=== PATIENT | female | born 1990 | race Caucasian/White ===

== ENCOUNTER 2020-01-24 11:53 | Outpatient (CLI) | payer OTHER ==
[2020-01-24 13:39] LABS: FOLLICLE STIMULATING HORMONE 5.56 mIU/mL
[2020-01-25 06:41] LABS: PROGESTERONE <0.5 ng/mL
[2020-01-25 06:57] LABS: ESTRADIOL 142 pg/mL
== END 2020-01-24 11:54 | disposition home or self-care (01) ==
LOC: LAB 11:53
PROVIDERS: ATTEND Advanced Practice Midwife
DX: Z71.89 Other specified counseling (principal)
CPT/HCPCS: 36415; 81599; 82397; 82670; 83001; 84144; 84270; 84402; 84403; 84443

== ENCOUNTER 2020-02-12 12:58 | Outpatient (CLI) | payer OTHER ==
[2020-02-12 13:16] LABS: HGB - HEMOGLOBIN 13.5 g/dL (12.0-16.0); MEAN CORPUSCULAR HEMOGLOBIN 30.5 pg (27.0-31.0); MEAN CORPUSCULAR VOLUME 89.8 fL (81.0-99.0); MEAN PLATELET VOLUME 9.8 fL (7.9-10.8); RED BLOOD COUNT 4.42 10^6/uL (4.20-5.40); RED CELL DISTRIBUTION WIDTH 13.2 % (12.0-15.0); WHITE BLOOD COUNT 7.2 x10^3/uL (4.8-10.8)
[2020-02-12 14:22] LABS: HEMOGLOBIN A1c% 5.6 % (4.27-6.07)
== END 2020-02-12 12:59 | disposition home or self-care (01) ==
LOC: LAB 12:58
PROVIDERS: ATTEND Advanced Practice Midwife
DX: Z71.89 Other specified counseling (principal)
CPT/HCPCS: 36415; 81599; 82670; 82728; 83036; 83520; 84403; 85027

== ENCOUNTER 2020-06-02 07:00 | Outpatient (CLI) | payer OTHER ==
[2020-06-03 10:28] LABS: BILIRUBIN,URINE NEGATIVE (NEGATIVE); GLUCOSE, URINE (UA) NEGATIVE (NEGATIVE); KETONES,URINE (UA) NEGATIVE (NEGATIVE); LEUKOCYTE ESTERASE, URINE NEGATIVE (NEGATIVE); NITRITE,URINE NEGATIVE (NEGATIVE); OCCULT BLOOD,URINE NEGATIVE (NEGATIVE); PH,URINE 5.5 PH (5.0-7.5); PROTEIN,URINE NEGATIVE (NEGATIVE); UROBILINOGEN,URINE 0.2 (NORMAL) E.U./dL (NORMAL)
[2020-06-03 10:53] LABS: CLARITY,URINE CLOUDY (CLEAR)
[2020-06-03 10:54] LABS: RBC,URINE None Seen /HPF (0-5)
[2020-06-03 10:55] LABS: AMORPHOUS SEDIMENT,UR Moderate /LPF; BACTERIA,URINE Rare /HPF (None Seen); SQUAMOUS EPITHELIAL CELL,UR FEW Squamous (<= Few)
[2020-06-03 10:58] LABS: AMPHETAMINE SCREEN,URINE NEGATIVE (NEGATIVE); BENZODIAZEPINES SCREEN, URINE NEGATIVE (NEGATIVE); COCAINE SCREEN URINE NEGATIVE (NEGATIVE); METHADONE SCREEN, URINE NEGATIVE (NEGATIVE); METHAMPHETAMINES SCREEN, URINE NEGATIVE (NEGATIVE); MUDS CUTOFF CONCENTRATIONS CUTOFF CONC BELOW:; OPIATE SCREEN, URINE NEGATIVE (NEGATIVE); OXYCODONE SCREEN, URINE NEGATIVE (NEGATIVE); PROPOXYPHENE SCREEN, URINE NEGATIVE (NEGATIVE); TRICYCLIC ANTIDEPRESSANT,URINE NEGATIVE (NEGATIVE)
== END 2020-06-02 23:59 | disposition home or self-care (01) ==
LOC: LAB.R 07:00
PROVIDERS: ATTEND Advanced Practice Midwife
DX: Z34.90 Encounter for supervision of normal pregnancy, unspecified, unspecified trimester (principal)
CPT/HCPCS: 80306; 81001; 87086

== ENCOUNTER 2020-06-13 14:50 | Outpatient (CLI) | payer OTHER ==
--- NOTE | 2020-06-13 16:44 | Ultrasound Report ---
PROCEDURE: OB First Trimester w/TV INDICATIONS: SUPERVISION OF NORMAL OUTSIDE/PRIOR DATING DATA: Last menstrual period (LMP): 04/24/2020. LMP-based estimated date of delivery (MARIE): 01/29/2021. First dating scan (date and location): 06/13/2020. Estimated date of delivery (MARIE) from first dating scan: 02/02/2021. TECHNIQUE: Real-time scanning was performed of the fetus and maternal pelvic organs, with image documentation. Endovaginal scanning was also performed to better visualize the fetus and maternal ovaries. COMPARISON: None. FINDINGS: Embryo: Single living intrauterine fetus is present with a heart rate measures 130 bpm. [place]- rump length measures 0.7 cm, 6 weeks 4 days. Perigestational hemorrhage measuring 1.1 x 1.2 x 1.1 cm Measurement variability in dating: +/- 4 weeks by LMP, +/- 7 days by mean sac diameter (use before 6 weeks gestation if crown-rump length not able to be measured), +/- 5 days by crown-rump length (6-12 weeks gestation). Maternal organs: Ovaries unremarkable except for incidentally noted right corpus luteum. Limited im ages through the kidneys demonstrate no hydronephrosis. IMPRESSION: Single living intrauterine fetus with a gestational age of 6 weeks and 4 days by today's ultrasound m easurements corresponding to an MARIE of 02/02/2021, which is concordant with reported LMP as above Small perigestational hemorrhage. Reviewed by: Jericho Adkins MD on 06/13/2020 4:43 PM PST Approved by: Jericho Adkins MD on 06/13/2020 4:43 PM PST Station ID: [id number]
== END 2020-06-13 14:51 | disposition home or self-care (01) ==
LOC: DI 14:50
PROVIDERS: ATTEND Advanced Practice Midwife
DX: Z34.91 Encounter for supervision of normal pregnancy, unspecified, first trimester (principal)

== ENCOUNTER 2020-06-30 21:46 | Emergency (ER) | payer OTHER ==
--- NOTE | 2020-07-01 00:33 | ED Physician Documentation ---
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 Patient states she is approximately 9 to 10 weeks and has had an unremarkable so far. She has had an ultrasound already which is shown and I PE. Patient states she was at work at her job in a [employer], when she was asked to help an elderly man chair. She states that she felt as though she strained herself somewhat trying to do this, and has had right lower quadrant abdominal pain in the 2 days since. Patient states that today, when she wiped after urinating, she noticed a red streak on the toilet paper. An hour or 2 later, she had to the bathroom again and noticed that there was still bright red blood. She states she put on a pad and has not soaked the pad yet, after several hours. She denies any cramping. No passage of tissue. No nausea or vomiting. No other complaints at this time. No dysuria or fever. Review of Systems Ten Systems: 10 systems reviewed and negative Constitutional: reports: Reviewed and negative Eyes: reports: Reviewed and negative Ears: reports: Reviewed and negative Nose: reports: Reviewed and negative Throat: reports: Reviewed and negative Cardiac: reports: Reviewed and negative Respiratory: reports: Reviewed and negative GI: reports: Reviewed and negative : reports: Vaginal bleeding, Now EGA (LMP 04/24/20) Skin: reports: Reviewed and negative Musculoskeletal: reports: Reviewed and negative Neurologic: reports: Reviewed and negative Psychiatric: reports: Reviewed and negative Endocrine: reports: Reviewed and negative Immunocompromised: reports: Reviewed and negative PD PAST MEDICAL HISTORY - Past Medical History Past Medical History: Yes Cardiovascular: Murmur - Past Surgical History Past Surgical History: Yes General: Appendectomy - Present Medications Home Medications: Ambulatory Orders Medication Instructions Recorded Confirmed No115/Iron/Folic Acid 1 each PO DAILY 06/30/20 06/30/20 [ 19 Chewable Tablet] - Allergies Allergies/Adverse Reactions: Allergies Allergy/AdvReac Type Severity Reaction Status Date / Time No Known Drug Allergies Allergy Verified 06/30/20 22:01 - Social History Does the pt smoke?: No Smoking Status: Never smoker Does the pt drink ETOH?: No Does the pt have substance abuse?: No PD ED PE NORMAL - Vitals Vital signs reviewed: Yes - General General: Alert and oriented X 3, No acute distress - HEENT HEENT: Atraumatic, PERRL, EOMI, Moist mucous membranes - Neck Neck: Supple, no meningeal sign - Cardiac Cardiac: RRR, No murmur, Strong equal pulses - Respiratory Respiratory: No respiratory distress, Clear bilaterally - Abdomen Abdomen: Soft, Non distended, Other (Mild tenderness right pelvic area, no rebound or guarding. No tenderness over McBurney's point.) - Female Female : Other (Normal female genitalia. Mild amount of reddish-brown, diluted bloody discharge in vaginal canal. No trauma. No tissue.) - Back Back: No CVA TTP - Derm Derm: Normal color, Warm and dry, No rash - Extremities Extremities: No deformity, No edema, No calf tenderness / cord - Neuro Neuro: Alert and oriented X 3, equine dentist 2-12 intact, Normal speech, Other (Otherwise grossly intact.) - Psych Psych: Normal mood, Normal affect Results - Vitals Vitals: Vital Signs - 24 hr 06/30/20 07/01/20 21:55 01:17 Temperature 37.1 C 36.8 C Heart Rate 91 83 Respiratory 16 20 Rate Blood Pressure 154/120 H 161/107 H O2 Saturation 100 100 Oxygen O2 Source Room air - Labs Labs: Laboratory Tests 06/30/20 07/01/20 22:30 00:25 HCG, Quant 40053.00 Urine Color YELLOW Urine Clarity CLEAR Urine pH 6.0 Ur Specific [place] >=1.030 H Urine Protein TRACE Urine Glucose (UA) NEGATIVE Urine Ketones NEGATIVE Urine Occult Blood LARGE H Urine Nitrite NEGATIVE Urine Bilirubin NEGATIVE Urine Urobilinogen 0.2 (NORMAL) Ur Leukocyte Esterase NEGATIVE Urine RBC 11-25 H Urine WBC 0-3 Ur Squamous Epith Cells MOD Squamous H Urine Bacteria Rare Ur Microscopic Review INDICATED Urine Culture Comments NOT INDICATED - Rads (name of study) US OB Radiology: Final report received, See rad report (single live IUP, 9 wks; subchorionic hemorrhage) PD MEDICAL DECISION MAKING - ED course Complexity details: reviewed results, re-evaluated patient, considered differential, d/w patient ED course: The patient was worked up with an ultrasound of the pelvis, with OB protocol, and this did show a single live 9-week IUP, as well as a couple of small subchorionic hemorrhages.. Also, a small ovarian cyst was noted. The patient was hemodynamically stable and bleeding was mild. I discussed with the patient that at this point, her appears to be doing very well, but the bleeding can still sometimes signal that a miscarriage will happen. I have advised patient to follow closely with her OB specialist, and patient states she has an appointment in 4 days. We have discussed home management of the symptoms, as well as the usual indications for return. Departure - Departure Disposition: 01 Home, Self Care Clinical Impression: Threatened affecting intrauterine Abdominal wall strain Qualifiers: Encounter type: initial encounter Qualified Code(s): S39.011A - Strain of muscle, fascia and tendon of abdomen, initial encounter Ovarian cyst Qualifiers: Laterality: right Qualified Code(s): N83.201 - Unspecified ovarian cyst, right side Condition: Stable Instructions: ED Miscarriage Poss Comments: Your hormones are within the range of normal for your stage of . Additionally, your baby's heart rate and activity level are reassuring, and the sac is at an appropriate size for your stage of . It does appear that you have a small area of separation of the sac, which is caused a subchorionic hemorrhage, or small free blood collection within the ut erus. Generally, this does not cause any trouble with the ; however, it can sometimes seep down to the cervix and bloody discharge can be noted from the vagina. This seems to be most likely what is happening in your case. However, since bleeding can be a sign that the is under stress, it is important that you follow-up with your OB for regular care. If you begin to have severe lower abdominal pain and cramping with increasingly heavy bleeding, then you should be reevaluated immediately. Discharge Date/Time: 07/01/20 01:18
[2020-07-01 00:52] LABS: BILIRUBIN,URINE NEGATIVE (NEGATIVE); GLUCOSE, URINE (UA) NEGATIVE (NEGATIVE); KETONES,URINE (UA) NEGATIVE (NEGATIVE); LEUKOCYTE ESTERASE, URINE NEGATIVE (NEGATIVE); NITRITE,URINE NEGATIVE (NEGATIVE); OCCULT BLOOD,URINE LARGE (NEGATIVE); PROTEIN,URINE TRACE mg/dL (NEGATIVE); UROBILINOGEN,URINE 0.2 (NORMAL) E.U./dL (NORMAL)
[2020-07-01 01:01] LABS: CLARITY,URINE CLEAR (CLEAR)
[2020-07-01 01:02] LABS: BACTERIA,URINE Rare /HPF (None Seen); SQUAMOUS EPITHELIAL CELL,UR MOD Squamous (<= Few)
[2020-07-01 01:18] VITALS: BP 161/107
--- NOTE | 2020-07-01 14:24 | Ultrasound Report ---
PROCEDURE: OB First Trimester INDICATIONS: vag bleed 1st trimester OUTSIDE/PRIOR DATING DATA: Last menstrual period (LMP): 06/24/2019. LMP-based estimated date of delivery (MARIE): 01/29/2021. First dating scan (date and location): 06/13/2020. Estimated date of delivery (MARIE) from first dating scan: 02/02/2021. TECHNIQUE: Real-time scanning was performed of the fetus and maternal pelvic organs, with image documentation. COMPARISON: OB ultrasound 06/13/2020 FINDINGS: Embryo: Single live intrauterine is identified with crown-rump length measuring 2.3 sq cm spine to 9 weeks 0 days. This is the same as the estimated gestational age from initial ultrasound on 06/13/2020. heart rate is identified at 164 bpm. Cervix is closed. There is a superior subchori onic hemorrhage measuring 13 x 9 x 15 mm as well as a focus of inferior subchorionic hemorrhage measu ring 9 x 5 mm. Measurement variability in dating: +/- 4 weeks by LMP, +/- 7 days by mean sac diameter (use before 6 weeks gestation if crown-rump length not able to be measured), +/- 5 days by crown-rump length (6-12 weeks gestation). Maternal organs: Ovaries demonstrate a right corpus luteal cyst.. IMPRESSION: 1. Single live intrauterine with ultrasound gestational age of 9 weeks 0 days corresponding to ultrasound MARIE of . 2. Two foci of subchorionic hemorrhage as above. The above findings are concordant with preliminary report. Reviewed by: Coleen Welsh MD on 07/01/2020 2:22 PM PST Approved by: Coleen Welsh MD on 07/01/2020 2:22 PM PST Station ID: [id number]
--- NOTE | 2020-07-01 15:32 | Ultrasound Report ---
PROCEDURE: OB Transvaginal INDICATIONS: vag bleed 1st trimester OUTSIDE/PRIOR DATING DATA: Last menstrual period (LMP): 06/24/2019. LMP-based estimated date of delivery (MARIE): 01/29/2021. First dating scan (date and location): 06/13/2020. Estimated date of delivery (MARIE) from first dating scan: 02/02/2021. TECHNIQUE: Real-time scanning was performed of the fetus and maternal pelvic organs, with image documentation. COMPARISON: OB ultrasound 06/13/2020 FINDINGS: Embryo: Single live intrauterine is identified with crown-rump length measuring 2.3 sq cm s pine to 9 weeks 0 days. This is the same as the estimated gestational age from initial ultrasound on 06/13/2020. heart rate is identified at 164 bpm. Cervix is closed. There is a superior subchorio felix hemorrhage measuring 13 x 9 x 15 mm as well as a focus of inferior subchorionic hemorrhage measuring 9 x 5 mm. Maternal organs: Ovaries demonstrate a right corpus luteal cyst. IMPRESSION: 1. Single live intrauterine with ultrasound gestational age of 9 weeks 0 days corresponding to ultrasound MARIE of . 2. Two foci of subchorionic hemorrhage as above. The above findings are concordant with preliminary report. Reviewed by: Coleen Welsh MD on 07/01/2020 3:31 PM PST Approved by: Coleen Welsh MD on 07/01/2020 3:31 PM PST Station ID: [id number]
== END 2020-07-01 01:18 | disposition home or self-care (01) ==
LOC: ED 21:46
DX: O20.0 Threatened abortion (principal); S39.011A Strain of muscle, fascia and tendon of abdomen, initial encounter; X50.0XXA Overexertion from strenuous movement or load, initial encounter; Y93.F2 Activity, caregiving, lifting; Y92.59 Other trade areas as the place of occurrence of the external cause; Y99.0 Civilian activity done for income or pay; O34.81 Maternal care for other abnormalities of pelvic organs, first trimester; N83.201 Unspecified ovarian cyst, right side; Z3A.09 9 weeks gestation of pregnancy
CPT/HCPCS: 81001; 81003; 84702; 87086; 99284

== ENCOUNTER 2020-07-04 08:00 | Outpatient (CLI) | payer OTHER ==
[2020-07-04 22:08] LABS: TRICHOMONAS VAGINALIS DNA POSITIVE (NEGATIVE)
== END 2020-07-04 23:59 | disposition home or self-care (01) ==
LOC: LAB.R 08:00
PROVIDERS: ATTEND Nurse Practitioner Obstetrics & Gynecology
DX: Z11.3 Encounter for screening for infections with a predominantly sexual mode of transmission (principal)
CPT/HCPCS: 87491; 87591; 87661

== ENCOUNTER 2020-08-01 10:50 | Outpatient (CLI) | payer OTHER ==
[2020-08-01 11:17] LABS: BASOPHILS % (AUTO) 0.2 %; EOSINOPHILS # (AUTO) 0.1 10^3/uL (0.0-0.7); HCT - HEMATOCRIT 37.9 % (37.0-47.0); HGB - HEMOGLOBIN 12.6 g/dL (12.0-16.0); LYMPHOCYTES # (AUTO) 2.1 10^3/uL (1.5-3.5); LYMPHOCYTES % (AUTO) 25.3 %; MEAN CORPUSCULAR HEMOGLOBIN 29.3 pg (27.0-31.0); MEAN CORPUSCULAR HGB CONC 33.2 g/dL (32.0-36.0); MEAN CORPUSCULAR VOLUME 88.1 fL (81.0-99.0); MEAN PLATELET VOLUME 9.8 fL (7.9-10.8); MONOCYTES # (AUTO) 0.7 10^3/uL (0.0-1.0); MONOCYTES % (AUTO) 8.3 %; NEUTROPHILS # (AUTO) 5.4 10^3/uL (1.5-6.6); NEUTROPHILS % (AUTO) 64.8 %; PLT - PLATELET COUNT 182 10^3/uL (130-450); RED CELL DISTRIBUTION WIDTH 13.2 % (12.0-15.0); WHITE BLOOD COUNT 8.3 x10^3/uL (4.8-10.8)
[2020-08-01 11:36] LABS: ESTIMATED AVERAGE GLUCOSE 114 mg/dL (70-100); HEMOGLOBIN A1c% 5.6 % (4.27-6.07)
[2020-08-02 07:18] LABS: HIV AG/AB 4TH GEN NON-REACTIVE (NON-REACTIVE)
[2020-08-02 13:12] LABS: HEPATITIS C ANTIBODY NON-REACTIVE (NON-REACTIVE)
[2020-08-02 14:12] LABS: HEPATITIS B SURFACE ANTIGEN NON-REACTIVE (NON-REACTIVE)
== END 2020-08-01 10:51 | disposition home or self-care (01) ==
LOC: LAB 10:50
PROVIDERS: ATTEND Nurse Practitioner Obstetrics & Gynecology
DX: Z36.89 Encounter for other specified antenatal screening (principal)
CPT/HCPCS: 36415; 83036; 85025; 86592; 86762; 86787; 86803; 86850; 86900; 86901; 87340; 87389

== ENCOUNTER 2020-08-12 15:50 | Emergency (ER) | payer OTHER ==
[2020-08-12 16:15] LABS: BILIRUBIN,URINE NEGATIVE (NEGATIVE); GLUCOSE, URINE (UA) NEGATIVE (NEGATIVE); KETONES,URINE (UA) NEGATIVE (NEGATIVE); LEUKOCYTE ESTERASE, URINE NEGATIVE (NEGATIVE); NITRITE,URINE NEGATIVE (NEGATIVE); OCCULT BLOOD,URINE NEGATIVE (NEGATIVE); PROTEIN,URINE NEGATIVE (NEGATIVE); UROBILINOGEN,URINE 0.2 (NORMAL) E.U./dL (NORMAL)
[2020-08-12 16:18] LABS: CLARITY,URINE CLEAR (CLEAR)
--- NOTE | 2020-08-12 16:23 | ED Physician Documentation ---
History of Present Illness - Stated complaint Stated Complaint: SENT BY [facility] - Chief complaint Chief Complaint: Neuro - Additonal information Additional information: 30-year-old female presents emergency department for evaluation of elevated blood pressures as well as headache. She reports being 15 weeks 5 days . LMP 04/24/2020. She reports that 4 days ago she developed a headache. It was not sudden onset. No vision loss diplopia recent falls or trauma. No fevers. Denies nausea. She was talking to a friend who told her that maybe she had a headache because she had elevated blood pressures. She bought a blood pressure cuff at the pharmacy and found that she had blood pressure of 160/100. She did call her OB office and spoke with the nurse there who advised ER evaluation. Patient stated that her headache lasted for 3 days before going away yesterday she does not have a headache at this time. Denies chest pain or shortness of breath. Denies any previous history of hypertension or taking hypertensive meds. Pt is a non smoker, non vaper. Denies CP, SOB. no unilateral leg swelling. pt denies vaginal bleeding or discharge. She has not yet begun to feel movement. She was seen in this ED early June with vaginal bleeding in first trimester found to have a subchorionic hemorrhage. Her blood pressures were noted to be elevated with that visit but patient states it is because she was stressed. Review of Systems Constitutional: denies: Fever, Chills, Myalgias Eyes: denies: Decreased vision Ears: reports: Reviewed and negative Nose: reports: Reviewed and negative Throat: reports: Reviewed and negative Cardiac: reports: Reviewed and negative GI: denies: Abdominal Pain, Nausea, Vomiting, Constipation, Diarrhea : denies: Dysuria, Frequency, Hesitancy, Vaginal bleeding Skin: denies: Rash, Lesions Musculoskeletal: denies: Neck pain, Back pain Neurologic: reports: Headache. denies: Numbness, Difficulty speaking, Near syncope, Syncope, Seizure, Confused, Head injury, LOC PD PAST MEDICAL HISTORY - Past Medical History Cardiovascular: Murmur - Past Surgical History Past Surgical History: Yes General: Appendectomy - Present Medications Home Medications: Ambulatory Orders Medication Instructions Recorded Confirmed No115/Iron/Folic Acid 1 each PO DAILY 06/30/20 08/12/20 [ 19 Chewable Tablet] Labetalol [Trandate] 50 mg PO DAILY #7 tablet 08/12/20 - Allergies Allergies/Adverse Reactions: Allergies Allergy/AdvReac Type Severity Reaction Status Date / Time No Known Drug Allergies Allergy Verified 08/12/20 15:57 - Social History Does the pt smoke?: No Smoking Status: Never smoker Does the pt drink ETOH?: No Does the pt have substance abuse?: No PD ED PE EXPANDED - General General: Alert, No acute distress, Other (obese) - Neck Neck: Supple w/out meningeal sx. No: Adenopathy - Cardiac Cardiac: Regular Rate, Radial strong equal, Cap refill < 2 sec. No: Murmur Present - Respiratory Respiratory: Clear to ausultation marylin. No: Distress, Labored - Abdomen Abdomen: Normal Bowel sounds - Neuro Neuro: Alert and Oriented X 3, CNII-XII intact, Normal gait, Normal finger nose, Normal speech. No: Confused, Disoriented - GCS Eye Opening: Spontaneous Motor: Obeys Commands Verbal: Oriented Total: 15 Results - Vitals Vitals: Vital Signs - 24 hr 08/12/20 08/12/20 08/12/20 15:55 16:40 16:57 Temperature 36.2 C L Heart Rate 90 88 80 Respiratory 18 18 Rate Blood Pressure 157/104 H 145/96 H 140/81 H O2 Saturation 100 99 08/12/20 17:00 Temperature Heart Rate 86 Respiratory 16 Rate Blood Pressure 134/88 H O2 Saturation 99 Oxygen O2 Source Room air - EKG (time done) 1636 Rate: Rate (enter#) (96) Rhythm: NSR [place]: Normal Intervals: Normal GA QRS: Normal Ischemia: Normal ST segments Compare to prior EKG: Changed from prior EKG, Old EKG unavailable Computer interpretation: Agree with computer - Labs Labs: Laboratory Tests 08/12/20 08/12/20 16:05 16:24 Sodium 134 L Potassium 3.6 Chloride 100 L Carbon Dioxide 23 Anion Gap 11.0 BUN 10 Creatinine 0.5 Estimated GFR (MDRD) 144 Glucose 89 Calcium 9.4 Total Bilirubin 0.6 AST 17 ALT 18 Alkaline Phosphatase 43 Total Protein 7.3 Albumin 3.6 Globulin 3.7 Albumin/Globulin Ratio 1.0 Lipase 30 Urine Color YELLOW Urine Clarity CLEAR Urine pH 6.0 Ur Specific [place] 1.025 Urine Protein NEGATIVE Urine Glucose (UA) NEGATIVE Urine Ketones NEGATIVE Urine Occult Blood NEGATIVE Urine Nitrite NEGATIVE Urine Bilirubin NEGATIVE Urine Urobilinogen 0.2 (NORMAL) Ur Leukocyte Esterase NEGATIVE Ur Microscopic Review NOT INDICATED Urine Culture Comments NOT INDICATED PD MEDICAL DECISION MAKING - ED course Complexity details: reviewed results, considered differential, d/w patient ED course: 30-year-old female whose 15 weeks 5 days presents emergency department for evaluation of a headache that is no longer present as well as concerns of elevated blood pressures. She did buy home blood pressure monitor and noted that she had systolic pressures of 160/100. On presentation here her blood pressures were similar though after rest we did have a blood pressure reading of 145/96. Limited bedside ultrasound with Dr. Fraser showed single live intrauterine with good movement measured heart rate of 148 bpm. Screening electrolytes show no LFT or renal function concerns. Patient was given 50 mg of labetalol here in the emergency department and will be discharged with a prescription for home use. I have advised patient to take her blood pressure twice daily. She is scheduled to see the OB clinic in 72 hours time at which point her blood pressure can be reevaluated. Though pt reported headache for 3- 4 days, none present now and no red flags. Emergent return precautions discussed Departure - Departure Disposition: Home, Self Care Clinical Impression: Elevated blood pressure affecting in second trimester, antepartum Record reviewed to determine appropriate education?: Yes Prescriptions: Labetalol [Trandate] 50 mg PO DAILY #7 tablet Comments: You were seen today for elevated blood pressure in the second trimester of . Your screening labs are unremarkable as well as your EKG. I would like you to begin taking your blood pressure in the morning upon wakening and 1 hour after you take your labetalol. Please record these blood pressures and ta ke them with you to the OB appointment scheduled this Tuesday. If at any point you have fainting episodes feel faint or dizzy, have suddenly severe headaches or develop chest pain please return to the emergency department.
[2020-08-12 16:42] LABS: ALBUMIN 3.6 g/dL (3.2-5.5); BILIRUBIN,TOTAL 0.6 mg/dL (0.2-1.0); CALCIUM 9.4 mg/dL (8.5-10.3); CREATININE 0.5 mg/dL (0.4-1.0); POTASSIUM 3.6 mmol/L (3.5-5.0); TOTAL PROTEIN 7.3 g/dL (6.7-8.2)
[2020-08-12] MEDS ORDERED: LABETALOL 100 MG TABLET PO STA ×2 (16:49→17:07)
[2020-08-12 17:36] VITALS: BP 127/87
[2020-08-12 21:42] LABS: BASOPHILS % (AUTO) 0.3 %; EOSINOPHILS # (AUTO) 0.1 10^3/uL (0.0-0.7); EOSINOPHILS % (AUTO) 1.4 %; HCT - HEMATOCRIT 36.8 % (37.0-47.0); HGB - HEMOGLOBIN 12.1 g/dL (12.0-16.0); LYMPHOCYTES # (AUTO) 2.7 10^3/uL (1.5-3.5); LYMPHOCYTES % (AUTO) 27.7 %; MEAN CORPUSCULAR HEMOGLOBIN 29.8 pg (27.0-31.0); MEAN CORPUSCULAR HGB CONC 32.9 g/dL (32.0-36.0); MEAN CORPUSCULAR VOLUME 90.6 fL (81.0-99.0); MEAN PLATELET VOLUME 10.4 fL (7.9-10.8); MONOCYTES # (AUTO) 0.8 10^3/uL (0.0-1.0); MONOCYTES % (AUTO) 8.2 %; NEUTROPHILS # (AUTO) 5.9 10^3/uL (1.5-6.6); PLT - PLATELET COUNT 182 10^3/uL (130-450); RED BLOOD COUNT 4.06 10^6/uL (4.20-5.40); RED CELL DISTRIBUTION WIDTH 13.2 % (12.0-15.0); WHITE BLOOD COUNT 9.6 x10^3/uL (4.8-10.8)
[2020-08-13] MEDS ORDERED: LABETALOL 100 MG TABLET PO SCH (09:00)
== END 2020-08-12 17:43 | disposition home or self-care (01) ==
LOC: ED 15:50
DX: O16.2 Unspecified maternal hypertension, second trimester (principal); Z3A.15 15 weeks gestation of pregnancy
CPT/HCPCS: 36415; 80053; 81003; 83690; 85025; 93005; 99283; 99284; A9270; 81001; 87086

== ENCOUNTER 2020-08-28 08:00 | Outpatient (CLI) | payer OTHER ==
[2020-08-28 18:07] LABS: CREATININE,URINE 108.6 mg/dL
== END 2020-08-28 23:59 | disposition home or self-care (01) ==
LOC: LAB.WCP 08:00
PROVIDERS: ATTEND Obstetrics & Gynecology
DX: O16.9 Unspecified maternal hypertension, unspecified trimester (principal)
CPT/HCPCS: 82570; 84156

== ENCOUNTER 2020-09-06 12:33 | Outpatient (CLI) | payer OTHER | END 2020-09-06 12:34 | disposition home or self-care (01) | LOC: LAB.N 12:33 | PROVIDERS: ATTEND Obstetrics & Gynecology | DX: Z53.9 Procedure and treatment not carried out, unspecified reason (principal); O16.9 Unspecified maternal hypertension, unspecified trimester ==

== ENCOUNTER 2020-09-09 09:16 | Outpatient (CLI) | payer OTHER ==
[2020-09-12 04:36] LABS: AFP MOM 1.03; AGE RISK DOWN SYNDROME 1 IN 572; CALC'D GESTATIONAL AGE 19.7 weeks; CIGARETTE SMOKER? NOT GIVEN; DONOR AGE: EGG RETRIEVAL NOT GIVEN; DONOR EGG NO; HCG MOM 0.81; HX OF NEURAL TUBE DEFECTS NO; INHIBIN A MOM 1.18; INSULIN DEPEND DIABETIC NO; MATERNAL WEIGHT 262 lbs; MSS DOWN SYNDROME RISK 1 IN 3289; MSS3 TRISOMY 18 RISK <1 IN 5000; NUMBER OF FETUSES 1; PREV PREGNANCY DOWN SYND NO; RISK FOR ONTD 1 IN 3172
== END 2020-09-09 09:17 | disposition home or self-care (01) ==
LOC: LAB 09:16
PROVIDERS: ATTEND Obstetrics & Gynecology
DX: O16.9 Unspecified maternal hypertension, unspecified trimester (principal)
CPT/HCPCS: 36415; 81511

== ENCOUNTER 2020-09-14 08:21 | Outpatient (CLI) | payer OTHER ==
--- NOTE | 2020-09-14 11:36 | Ultrasound Report ---
PROCEDURE: OB Detailed Eval INDICATIONS: SCREENING OUTSIDE/PRIOR DATING DATA: Last menstrual period (LMP): 04/24/2020. LMP-based estimated date of delivery (MARIE): 01/29/2021. First dating scan (date and location): 06/13/2020. [facility] Estimated date of delivery (MARIE) from first dating scan: 02/03/2020 ri. TECHNIQUE: Real-time scanning was performed of the fetus, with image documentation and biometric measurements. COMPARISON: None. FINDINGS: Exam is suboptimal given maternal body habitus. General: A single living intrauterine gestation is present. Presentation: Variable Placenta: Placental position is posterior, without previa. Amniotic fluid index: 10.4 cm, 10% for gestational age. heart rate: 147 beats per minute. Maternal cervical canal: 4.9 cm long; normal length is 2.5 cm or more. biometrics: Biparietal diameter: 4.3 cm corresponding to 19 weeks 1 day and 6.7% Head circumference: 17.36 cm corresponding to 19 weeks 6 days and 19.6% Cephalic index: 72.65 (normal 74-83) Abdominal circumference: 14.65 cm corresponding to 20 weeks 0 days and 28.1% Femur length: 3.25 cm corresponding to 20 weeks 1 day and 31.4% Estimated gestational age from initial scan: not applicable. Composite gestational age from present scan: 19 weeks 5 days Estimated weight and percentile: 325 mg, 23.1% Measurement variability in biometric dating: +/- 10 days from 12-20 weeks gestation, +/- 2 weeks from 20-30 weeks gestation, +/- 3 weeks at 30 weeks gestation or later. Anatomic survey: Neuro: Ventricles are normal at less than 10 mm. Cisterna magna is normal at 3-11 mm. Cerebellum i s normal in size and morphology. Cavum septum lucidum is not appropriately evaluated. Nuchal skin fold: Normal at less than 6 mm between 14 and 20 weeks gestational age. Face: Nose and lips, facial profile are normal. Spine: No evidence for spina bifida. Heart: 4-chambered heart is present. Outflow tracts are not adequately evaluated. Diaphragm: Diaphragm is intact. Stomach: Left-sided stomach is present. Kidneys: No hydronephrosis. Normal is less than 5 mm in 2nd trimester, less than 7 mm in 3rd trimester. Cord: 3 vessel cord has orthotopic insertion. Bladder: Normal in size. Extremities: All 4 extremities are visualized. IMPRESSION: Single intrauterine with heart rate of 147 bpm corresponding to 19 weeks 5 days on to day's ultrasound. Suboptimal images of the cardiac outflow tracts and the cavum septum pellucidum. Recommend additional images to complete survey. No evidence of anatomic abnormality within the appropriately visual ized anatomic structures. Cephalic index measures below the expected mean which may be seen with dolichocephaly. This may also be artifactual given positioning. Recommend attention on follow-up. Estimated weight of 325 g corresponding to the 23rd percentile. No evidence of placenta previa. Reviewed by: Austin Charles DO on 09/14/2020 10:35 AM JOSEPHINE Approved by: Austin Charles DO on 09/14/2020 10:35 AM JOSEPHINE Station ID: [id number]
== END 2020-09-14 08:22 | disposition home or self-care (01) ==
LOC: DI 08:21
PROVIDERS: ATTEND Nurse Practitioner Obstetrics & Gynecology
DX: Z36.89 Encounter for other specified antenatal screening (principal)

== ENCOUNTER 2020-10-02 08:03 | Outpatient (CLI) | payer OTHER ==
--- NOTE | 2020-10-02 15:26 | Ultrasound Report ---
PROCEDURE: OB F/U or Repeat INDICATIONS: SCREENING OUTSIDE/PRIOR DATING DATA: Last menstrual period (LMP): 04/24/2020. LMP-based estimated date of delivery (MARIE): 01/29/2021. First dating scan (date and location): 06/13/2020. Estimated date of delivery (MARIE) from first dating scan: 02/02/2021. Physician states MARIE 01/29/2021. TECHNIQUE: Real-time scanning was performed of the fetus, with image documentation and biometric measurements. Endovaginal scanning: Not needed COMPARISON: All prior OB ultrasound studies for this .. FINDINGS: General: A single living intrauterine gestation is present. Presentation: Breech Placenta: Placental position is posterior, without previa. Amniotic fluid index: 11.4 cm, 13.6 percentile for gestational age. heart rate: 145 beats per minute. Maternal cervical canal: 4.1 cm long; normal length is 2.5 cm or more. biometrics and anatomic survey: Estimated gestational age from initial scan: 23 weeks 0 days. The survey of anatomy showed no abnormality. The right and left renal regions were not well see n due to positioning. The umbilical cord origin and insertion was poorly visualized. extr emities were relatively poorly seen due to maternal body habitus and positioning. Other: Not applicable. IMPRESSION: 23 weeks 0 day gestation estimated age, no anomaly seen but the survey of an atomy is mildly limited as noted above. If clinically desired repeat attempt to complete the an atomic survey could be performed in 1-2 weeks. Reviewed by: Tanmay Hensley MD on 10/02/2020 3:25 PM PDT Approved by: Tanmay Hensley MD on 10/02/2020 3:25 PM PDT Station ID: [id number]
== END 2020-10-02 08:04 | disposition home or self-care (01) ==
LOC: DI 08:03
PROVIDERS: ATTEND Nurse Practitioner Obstetrics & Gynecology
DX: Z34.92 Encounter for supervision of normal pregnancy, unspecified, second trimester (principal); Z36.89 Encounter for other specified antenatal screening

== ENCOUNTER 2020-10-17 10:34 | Outpatient (CLI) | payer OTHER ==
[2020-10-17 11:58] LABS: MEAN CORPUSCULAR HEMOGLOBIN 29.4 pg (27.0-31.0); MEAN CORPUSCULAR HGB CONC 32.4 g/dL (32.0-36.0); MEAN CORPUSCULAR VOLUME 90.9 fL (81.0-99.0); MEAN PLATELET VOLUME 10.2 fL (7.9-10.8); RED BLOOD COUNT 3.74 10^6/uL (4.20-5.40); RED CELL DISTRIBUTION WIDTH 13.3 % (12.0-15.0); WHITE BLOOD COUNT 10.8 x10^3/uL (4.8-10.8)
== END 2020-10-17 10:35 | disposition home or self-care (01) ==
LOC: LAB 10:34
PROVIDERS: ATTEND Obstetrics & Gynecology
DX: Z34.90 Encounter for supervision of normal pregnancy, unspecified, unspecified trimester (principal); Z36.89 Encounter for other specified antenatal screening
CPT/HCPCS: 36415; 82950; 85027

== ENCOUNTER 2020-10-23 09:08 | Outpatient (CLI) | payer OTHER ==
[2020-10-23 09:38] LABS: GTT GLUCOSE,FASTING 104 mg/dL (70-100)
== END 2020-10-23 09:09 | disposition home or self-care (01) ==
LOC: LAB 09:08
PROVIDERS: ATTEND Obstetrics & Gynecology
DX: R73.02 Impaired glucose tolerance (oral) (principal)
CPT/HCPCS: 36415; 82951; 82952

== ENCOUNTER 2020-11-24 10:27 | Outpatient (CLI) | payer OTHER | END 2020-11-24 10:28 | disposition home or self-care (01) | LOC: MAC.DIA 10:27 | PROVIDERS: ATTEND Obstetrics & Gynecology | DX: Z53.9 Procedure and treatment not carried out, unspecified reason (principal) ==

== ENCOUNTER 2021-01-02 20:00 | Outpatient (CLI) | payer OTHER ==
--- NOTE | 2021-01-03 09:13 | Ultrasound Report ---
PROCEDURE: OB F/U or Repeat INDICATIONS: GESTATIONAL DIABETES OUTSIDE/PRIOR DATING DATA: Last menstrual period (LMP): 04/24/2020. LMP-based estimated date of delivery (MARIE): 01/29/2021. First dating scan (date and location): 06/13/2020. Estimated date of delivery (MARIE) from first dating scan: 02/02/2021. The below data below was generated using the physician given MARIE of 01/29/2021 TECHNIQUE: Real-time scanning was performed of the fetus, with image documentation and biometric measurements. COMPARISON: 10/02/2020, 09/14/2020, 06/30/2020, 06/13/2020 FINDINGS: General: A single live intrauterine gestation is present. Presentation: Cephalic Placenta: Placental position is posterior, without previa. Amniotic fluid index: 15.2 cm, within normal limits for gestational age. heart rate: 135 beats per minute. Maternal cervical canal: 3.4 cm long; normal length is 2.5 cm or more. biometrics: Biparietal diameter: 8.9 cm equals 36 weeks 1 day Head circumference: 32.2 cm equals 36 weeks 2 days Abdominal circumference: 31.2 cm equals 35 weeks 1 day Femur length: 6.9 cm equals 35 weeks 3 days Estimated gestational age from initial scan: 36 weeks 1 day. Composite gestational age from present scan: 35 weeks 5 days Estimated weight and percentile: 2678 g, 32nd percentile Measurement variability in biometric dating: +/- 10 days from 12-20 weeks gestation, +/- 2 weeks from 20-30 weeks gestation, +/- 3 weeks at 30 weeks gestation or more. Other: Not applicable. This study is limited by body habitus. IMPRESSION: Normal interval growth compared to the prior ultrasound examination. No significant abnormality is identified. Reviewed by: Lico Marroquin MD on 01/03/2021 8:12 AM JOSEPHINE Approved by: Lico Marroquin MD on 01/03/2021 8:12 AM JOSEPHINE Station ID: [id number]
== END 2021-01-02 20:01 | disposition home or self-care (01) ==
LOC: DI 20:00
PROVIDERS: ATTEND Obstetrics & Gynecology
DX: O24.419 Gestational diabetes mellitus in pregnancy, unspecified control (principal); O16.9 Unspecified maternal hypertension, unspecified trimester; Z3A.35 35 weeks gestation of pregnancy

== ENCOUNTER 2021-01-14 11:53 | Outpatient (CLI) | payer OTHER ==
[2021-01-14 12:21] VITALS: BP 115/73
--- NOTE | 2021-01-14 14:52 | PROCEDURE REPORT ---
- HPI Diagnosis/Indication for NST: Gestational Diabetes Current EDU 01/29/21 Gestation 37 Weeks and 6 Days 1 Para 0 Vital Signs Temperature 37.1 C 01/14/21 12:15 Heart Rate 85 01/14/21 12:15 Respiratory Rate 18 01/14/21 12:15 Blood Pressure 115/73 01/14/21 12:15 O2 Saturation 98 01/14/21 12:15 Temperature 37.1 C 01/14/21 12:15 Heart Rate 85 01/14/21 12:15 Respiratory Rate 18 01/14/21 12:15 Blood Pressure 115/73 01/14/21 12:15 O2 Saturation 98 01/14/21 12:15 - NST Procedure NST Procedure Start Date 01/14/21 Start Time 12:08 End time 12:56 Vibroacoustic Stimulation Used No Patient States Movement Yes - Results and Plan Findings/Impression: DOS 01/14/21, Baseline 125. Accelerations 15 x 15 noted. Few mild contractions decelerations none Reactive NST. BPP is still pending. Plan: Continue twice weekly NSTs. The patient will be induced at 39 weeks.
--- NOTE | 2021-01-14 16:23 | Ultrasound Report ---
PROCEDURE: OB Biophysical Profile INDICATIONS: GESTATIONAL DIABETES, GESTATIONAL HTN OUTSIDE/PRIOR DATING DATA: Last menstrual period (LMP): 04/24/2020. LMP-based estimated date of delivery (MARIE): 01/29/2021. First dating scan (date and location): 06/13/2020. Estimated date of delivery (MARIE) from first dating scan: 02/02/2021. The below data below was generated using the physician stated MARIE of 01/29/2021 TECHNIQUE: Real-time scanning was performed of the fetus, with image documentation and biometric adrienne surements. Biophysical profile was also obtained. Endovaginal scanning: Not performed COMPARISON: Ultrasound dated 06/13/2020, 06/30/2020, 09/14/2020, 10/02/2020, 01/02/2021 FINDINGS: General: A single living intrauterine gestation is present. Presentation: Vertex Placenta: Placental position is posterior, without previa. Amniotic fluid index: 11.8 cm, normal for gestational age. Largest pocket 4.8 cm heart rate: 145 beats per minute. Maternal cervical canal: 3.8 cm long; normal length is 2.5 cm or more. Biophysical profile: Tone: 2 points. Movement: 2 points. Respiration: 2 points. Largest pocket of fluid: 2 points. 4.8 cm. Umbilical artery Doppler: 2.1, 2.4, 2.1, within normal limits. IMPRESSION: Single living intrauterine fetus in vertex presentation. Normal DAVINA Normal biophysical profile and cord Doppler examination. Reviewed by: Jericho Adkins MD on 01/14/2021 4:22 PM PDT Approved by: Jericho Adkins MD on 01/14/2021 4:22 PM PDT Station ID: [id number]
== END 2021-01-14 15:20 | disposition home or self-care (01) ==
LOC: WFO 11:53 → FBP 12:22 → WFO 15:20
PROVIDERS: ATTEND Obstetrics & Gynecology
DX: O24.410 Gestational diabetes mellitus in pregnancy, diet controlled (principal); Z3A.37 37 weeks gestation of pregnancy; O10.913 Unspecified pre-existing hypertension complicating pregnancy, third trimester; Z79.899 Other long term (current) drug therapy
CPT/HCPCS: 59025

== ENCOUNTER 2021-01-19 09:11 | Outpatient (CLI) | payer OTHER ==
[2021-01-19 09:46] VITALS: BP 133/79
--- NOTE | 2021-01-19 12:36 | PROCEDURE REPORT ---
- HPI Diagnosis/Indication for NST: Other (Prepregnancy hypertension and gesatation diabetes) Current EDU 01/29/21 Gestation 38 Weeks and 4 Days 1 Para 0 Vital Signs Temperature 98.1 F 01/19/21 09:13 Heart Rate 97 01/19/21 09:13 Respiratory Rate 18 01/19/21 09:13 Blood Pressure 143/89 H 01/19/21 09:13 O2 Saturation 99 01/19/21 09:13 Temperature 98.1 F 01/19/21 09:13 Heart Rate 84 01/19/21 09:41 Respiratory Rate 18 01/19/21 09:41 Blood Pressure 133/79 H 01/19/21 09:41 O2 Saturation 98 01/19/21 09:41 - NST Procedure NST Procedure Start Date 01/19/21 Start Time 09:10 Stop Time 09:36 Vibroacoustic Stimulation Used No Patient States Movement Yes EFM 135 beats per minute, moderate variability, accelerations present, no decelerations. Irregular contractions. Category 1. - Results and Plan Findings/Impression: Patient is a 30-year-old G1, P0 at 38 weeks 4 days here for scheduled NST. NST Performed 01/19/2021 NST Read 01/19/2021 Diagnosis 38 weeks gestation Prepregnancy hypertension Gestational diabetes Category 1 NST Continue with twice weekly NST. Patient discharged with labor precautions
== END 2021-01-19 09:41 | disposition home or self-care (01) ==
LOC: WFO 09:11 → FBP 09:12 → WFO 09:41
PROVIDERS: ATTEND Obstetrics & Gynecology
DX: O24.410 Gestational diabetes mellitus in pregnancy, diet controlled (principal); O10.913 Unspecified pre-existing hypertension complicating pregnancy, third trimester; Z3A.38 38 weeks gestation of pregnancy
CPT/HCPCS: 59025

== ENCOUNTER 2021-01-21 12:48 | Outpatient (CLI) | payer OTHER ==
[2021-01-21 22:59] LABS: CHLAMYDIA TRACHOMATIS DNA NEGATIVE (NEGATIVE); NEISSERIA GONORRHOEAE DNA NEGATIVE (NEGATIVE); TRICHOMONAS VAGINALIS DNA NEGATIVE (NEGATIVE)
== END 2021-01-21 12:49 | disposition home or self-care (01) ==
LOC: LAB 12:48 → LAB.R 12:49
PROVIDERS: ATTEND Obstetrics & Gynecology
DX: Z34.90 Encounter for supervision of normal pregnancy, unspecified, unspecified trimester (principal); Z36.89 Encounter for other specified antenatal screening
CPT/HCPCS: 87491; 87591; 87661; 87797

== ENCOUNTER 2021-01-22 07:34 | Inpatient (IN) | payer OTHER ==
[2021-01-22] MEDS ORDERED: CARBOPROST TROMETHAMINE 250 MCG/ML AMP IM PRN (09:43)
[2021-01-22] MEDS ORDERED: METOCLOPRAMIDE 10 MG/2 ML VIAL IVP PRN (09:43)
[2021-01-22] MEDS ORDERED: LIDOCAINE-MPF 1% 30 ML VIAL ID PRN (09:43)
[2021-01-22] MEDS ORDERED: OXYTOCIN/SODIUM CHLORIDE 500 ML IV PRN (09:43)
[2021-01-22] MEDS ORDERED: SODIUM CHLORIDE FLUSH 0.9% 10 ML SYRINGE IVP PRN (09:43)
[2021-01-22] MEDS ORDERED: TRANEXAMIC ACID IN NACL 1,000 MG/100 ML BAG IV PRN (09:43)
[2021-01-22] MEDS ORDERED: fentaNYL 100 MCG/2 ML VIAL IVP PRN (09:43)
[2021-01-22] MEDS ORDERED: METHYLERGONOVINE 0.2 MG/ML VIAL IM PRN (09:43)
[2021-01-22] MEDS ORDERED: miSOPROStoL 200 MCG TABLET BC PRN (09:43)
[2021-01-22] MEDS ORDERED: OXYTOCIN 10 UNIT/ML VIAL IM PRN (09:43)
[2021-01-22] MEDS ORDERED: ACETAMINOPHEN 325 MG TABLET PO PRN (09:43)
--- NOTE | 2021-01-22 10:03 | HISTORY & PHYSICAL EXAMINATION ---
Admit History - Visit Reason Visit Reason: Other (Induction of labor) - : 1 Parity: 0 Premature: 0 Ectopic: 0 : 0 Care: positive: [facility], Other ([facility] Risk/History: positive: Gestational diabetes, Labor induction (Induction due to Chronic Hypertension and Gestational Diabetes Type A1), Other (Chronic Hypertension) Smoking Status: Former smoker - Mother's Labs Mother's Blood Type: positive: A Mother's RH: positive: Positive GBS: positive: Other (Pending, should be back this afternoon.) Rubella Status: positive: Immune Meds/Allgy - Home Medications Home Medications: Ambulatory Orders Medication Instructions Recorded Confirmed No115/Iron/Folic Acid 1 each PO DAILY 06/30/20 11/24/20 [ 19 Chewable Tablet] Aspirin [Aspirin EC] 81 mg PO DAILY 11/24/20 11/24/20 Labetalol [Trandate] 100 mg PO BID 11/24/20 11/24/20 - Allergies Allergies/Adverse Reactions: Allergies Allergy/AdvReac Type Severity Reaction Status Date / Time latex Allergy Rash Verified 01/22/21 07:51 Review of Systems - Constitutional Constitutional: denies: Fatigue, Fever, Chills - Eyes Eyes: denies: Pain, Blurred vision, Spots in vision - Ears, Nose & Throat Ears, Nose & Throat: denies: Ear pain, Nasal discharge, Mouth lesions - Cardiovascular Cariovascular: denies: Irregular heart rate, Palpitations, Edema - Respiratory Respiratory: denies: Cough, Wheezing - Gastrointestinal Gastrointestinal: denies: Abdominal pain, Abdominal distention - Genitourinary Genitourinary: denies: Dysuria, Frequency, Urgency - Musculoskeletal Musculoskeletal: denies: Muscle pain - Integumentary Integumentary: denies: Rash, Pruritis, Lesions - Neurological Neurological: denies: General weakness, Focal weakness, Headache - Psychiatric Psychiatric: denies: Depression - All Other Systems All Other Systems: reports: Reviewed and negative Physical - Abdominal Exam Vital Signs: Temp Pulse Resp BP Pulse Ox 97.9 F 102 H 18 138/94 H 01/22/21 08:11 01/22/21 08:11 01/22/21 08:11 01/22/21 08:11 Contraction Intensity: positive: Other (Not currently having contractions, here for medical induction of labor.) Uterine Resting Tone: positive: Soft - Monitoring Strip Review: positive: Category I - Presentation Presentation: positive: Vertex (Bedside ultrasound performed and vertex confirmed.) - Vaginal Exam Membranes: positive: Membranes intact Dilation (in cm): Finger tip. Effacement (%): Long Station: positive: -3 Cervical Position: positive: Anterior (Soft) - Speculum Exam Speculum Exam Performed: positive: No - Other Notes Labor Progress Note/Additional Text: General: Patient is resting comfortably in bed and is not in any apparent distress. HEENT: Within normal limits. KIKO. Chest: Clear to auscultation. Good breath sounds in all fuller. No rales, wheezes or rhonchi. Heart: RRR without murmur or gallop. Abdomen: Soft, non-tender to palpation, gravid. Good bowel sounds in all fuller. Extremities: No edema, no calf tenderness. monitor strip is Category I with baseline of 140's. Moderate variability. Accelerations present. No contractions present. Discussed indications for Induction and patient was consented yesterday by Dr. Mccarthy. Patient and partner Phillip did not have any questions. Plan for Labor - Plan For Labor Plan for Labor: Cytotec cervical ripening, Labor indcuction. Anticipate Vaginal Delivery. Patient is aware it will most likely take more than 24 hours.
[2021-01-22 10:16] LABS: BASOPHILS % (AUTO) 0.4 %; EOSINOPHILS # (AUTO) 0.2 10^3/uL (0.0-0.7); EOSINOPHILS % (AUTO) 1.5 %; HCT - HEMATOCRIT 34.9 % (37.0-47.0); LYMPHOCYTES % (AUTO) 20.4 %; MEAN CORPUSCULAR HEMOGLOBIN 27.8 pg (27.0-31.0); MEAN CORPUSCULAR HGB CONC 31.5 g/dL (32.0-36.0); MEAN CORPUSCULAR VOLUME 88.1 fL (81.0-99.0); MEAN PLATELET VOLUME 11.2 fL (7.9-10.8); MONOCYTES # (AUTO) 0.9 10^3/uL (0.0-1.0); MONOCYTES % (AUTO) 9.5 %; NEUTROPHILS # (AUTO) 6.7 10^3/uL (1.5-6.6); NEUTROPHILS % (AUTO) 67.4 %; PLT - PLATELET COUNT 196 10^3/uL (130-450); RED BLOOD COUNT 3.96 10^6/uL (4.20-5.40); RED CELL DISTRIBUTION WIDTH 14.2 % (12.0-15.0); WHITE BLOOD COUNT 9.9 x10^3/uL (4.8-10.8)
[2021-01-22] MEDS: miSOPROStoL 100 MCG TABLET BC SCH ×4 (10:21→23:21)
[2021-01-22] MEDS ORDERED: SODIUM CHLORIDE FLUSH 0.9% 10 ML SYRINGE IVP SCH (17:00)
--- NOTE | 2021-01-22 17:33 | PROVIDER PROGRESS NOTE ---
Subjective - Prog Note Date Prog Note Date: 01/22/21 Prog Note Time: 17:30 - Subjective Pt reports feeling: No change (Patient is resting comfortably on Left side. Patient is without complaints. Patient states she has been feeling some tightening since 16:00. Patient reports good movement.) Objective - Objective General Appearance: positive: No acute distress - Lab Results Fish Bones: 01/22/21 10:00 Other Labs: Lab Results x24hrs 01/22/21 01/22/21 Range/Units 10:00 10:00 WBC 9.9 (4.8-10.8) x10^3/uL RBC 3.96 L (4.20-5.40) 10^6/uL Hgb 11.0 L (12.0-16.0) g/dL Hct 34.9 L (37.0-47.0) % MCV 88.1 (81.0-99.0) fL MCH 27.8 (27.0-31.0) pg MCHC 31.5 L (32.0-36.0) g/dL RDW 14.2 (12.0-15.0) % Plt Count 196 (130-450) 10^3/uL MPV 11.2 H (7.9-10.8) fL Neut # (Auto) 6.7 H (1.5-6.6) 10^3/uL Lymph # (Auto) 2.0 (1.5-3.5) 10^3/uL [place] # (Auto) 0.9 (0.0-1.0) 10^3/uL Eos # (Auto) 0.2 (0.0-0.7) 10^3/uL Baso # (Auto) 0.0 (0.0-0.1) 10^3/uL Absolute Nucleated RBC 0.00 x10^3/uL Nucleated RBC % 0.0 /100WBC Blood Type A POSITIVE Antibody Screen NEGATIVE - Other Results/Comments Other Results/Comments: General: Patient is resting comfortably on left side. No distress. monitor: 140 with accelerations, Moderate variability and no decelerations. Irregular contractions/irritability. Discussed plan to continue Cytotec. A-IUP 39 0/7 CHTN and GDM A1. Continue with cervical ripening/Induction of labor. P- Continue Cytotec and continuous monitoring.
[2021-01-22] MEDS ORDERED: ZOLPIDEM 5 MG TABLET PO PRN (21:13)
[2021-01-22] MEDS: LABETALOL 100 MG TABLET PO SCH (21:19)
[2021-01-23] MEDS: miSOPROStoL 100 MCG TABLET BC SCH (06:02)
[2021-01-23] MEDS: LABETALOL 100 MG TABLET PO SCH ×2 (09:35→21:05)
--- NOTE | 2021-01-23 09:41 | PROVIDER PROGRESS NOTE ---
Subjective - Prog Note Date Prog Note Date: 01/23/21 Prog Note Time: 09:30 - Subjective Pt reports feeling: No change Subjective: 30yo at 39 1/7 weeks today. Having second day of induction due to Chronic Hypertension and Gestational Diabetes A1. Patient rates her pain at a 1. Patient denies any problems. Patient is feeling cramping. Patient reports good movement. Objective - Vital Signs/Intake & Output Reviewed Vital Signs: Yes Vital Signs: Vital Signs x48h Temp Pulse Resp BP Pulse Ox 01/23/21 08:14 98.2 F 92 18 127/78 97 Intake & Output: Intake & Output 01/20/21 01/21/21 01/22/21 01/23/21 23:59 23:59 23:59 23:59 Intake Total 250 300 Balance 250 300 - Objective General Appearance: positive: No acute distress Eyes Bilateral: positive: Normal inspection Neck: positive: Nml inspection Respiratory: positive: Chest non-tender, Breath sounds nml Abdomen: positive: Non-tender Reflexes: Knee (R): 2+ - Lab Results Fish Bones: 01/22/21 10:00 Other Labs: Lab Results x24hrs 01/22/21 01/22/21 01/22/21 Range/Units 18:40 10:00 10:00 WBC 9.9 (4.8-10.8) x10^3/uL RBC 3.96 L (4.20-5.40) 10^6/uL Hgb 11.0 L (12.0-16.0) g/dL Hct 34.9 L (37.0-47.0) % MCV 88.1 (81.0-99.0) fL MCH 27.8 (27.0-31.0) pg MCHC 31.5 L (32.0-36.0) g/dL RDW 14.2 (12.0-15.0) % Plt Count 196 (130-450) 10^3/uL MPV 11.2 H (7.9-10.8) fL Neut # (Auto) 6.7 H (1.5-6.6) 10^3/uL Lymph # (Auto) 2.0 (1.5-3.5) 10^3/uL [place] # (Auto) 0.9 (0.0-1.0) 10^3/uL Eos # (Auto) 0.2 (0.0-0.7) 10^3/uL Baso # (Auto) 0.0 (0.0-0.1) 10^3/uL Absolute Nucleated RBC 0.00 x10^3/uL Nucleated RBC % 0.0 /100WBC SARS-CoV-2 (PCR) NOT DETECTED Blood Type A POSITIVE Antibody Screen NEGATIVE - Other Results/Comments Other Results/Comments: CX: 1cm/long/-3 anterior and soft. monitor: baseline 140 with moderate variability and accelerations. Difficult to keep on monitor when mother changes position. Category I monitor strip. Irregular contractions. Discussed with patient that we will place a power catheter at 10:00 am and start her on low dose pitocin. Discussed that delivery depends on the progress she makes today. Patient did not have any questions. Assessment/Plan - Problem List (1) Chronic hypertension in obstetric context in third trimester Impression: Second day of induction due to Chronic Hypertension and Gestational Diabetes A1. Doing well. P- Place power catheter into cervix and begin low dose Pitocin. (2) Gestational diabetes mellitus (GDM) in third trimester Qualifiers: Gestational diabetes mellitus control: diet-controlled Qualified Code(s): O24.410 - Gestational diabetes mellitus in , diet controlled
[2021-01-23] MEDS: LACTATED RINGERS 1,000 ML IV SCH (13:00)
[2021-01-23] MEDS ORDERED: OXYTOCIN/SODIUM CHLORIDE 500 ML IV SCH (15:00)
--- NOTE | 2021-01-23 15:40 | PROVIDER PROGRESS NOTE ---
Labor Progress Note - Uterine Monitoring Contraction Frequency (min/apart): 2-4 minutes Contraction Intensity: positive: Mild Uterine Resting Tone: positive: Soft - Monitoring Monitor Mode: positive: External ultrasound Heart Rate Baseline: 140 Heart Rate Variability: positive: Moderate (6-25 bmp) Accelerations: positive: Present, 15x15 Decelerations: positive: None - Vaginal Exam Dilation (in cm): 2 internal, 3-4 external Effacement (%): 50 Station: -3 Cervical Position: Anterior - Labor Progress Note Labor Progress Note/Additional Text: Ibarra bulb delivered through cervix with gentle traction, fully inflated. External os is 3-4 and thinned out. Lower 2/3 of cervix is thinned out. Upper third is still thick and only 2cm. Internal os, stripped membranes. Station is -3 so not able to AROM at this time. 2/50/-3 soft, anterior. P- Continue to go up on Pitocin as contraction frequency allows. Reassess cervix in2 hours and see if internal os has dilated and thinned and if head has descended. Continuous monitoring.
[2021-01-23] MEDS ORDERED: LABETALOL 20 MG/4 ML SYRINGE IVP ONE ×2 (16:21→17:03)
--- NOTE | 2021-01-23 19:05 | PROVIDER PROGRESS NOTE ---
Labor Progress Note - Uterine Monitoring Uterine Monitoring Mode: positive: IUPC Contraction Intensity: positive: Mild to moderate Uterine Resting Tone: positive: Soft - Monitoring Monitor Mode: positive: External ultrasound Heart Rate Baseline: 130 Heart Rate Variability: positive: Moderate (6-25 bmp) Accelerations: positive: Present, 15x15 Decelerations: positive: Variable, Intermittent (<50% x20 min) Strip Review: positive: Category I - Vaginal Exam Dilation (in cm): 3 Effacement (%): 50 Station: -3 (Patient had AROM an hour ago, struggled with monitors and FSE going to maternal EKG. Ended up with extrenal montior for heart tones after switching out FSE and complete monitor and cords. Patient is comfortable with Epidural at moment.)
--- NOTE | 2021-01-23 19:44 | PROVIDER PROGRESS NOTE ---
Labor Progress Note - Uterine Monitoring Uterine Monitoring Mode: positive: IUPC Contraction Frequency (min/apart): Q2 minutes Contraction Intensity: positive: Mild to moderate Uterine Resting Tone: positive: Soft - Monitoring Monitor Mode: positive: External ultrasound, Spiral electrode (Patient had FSE placed by Khushbu Cavazos CNM and then monitor went to maternal pattern not . FSE check and in proper place. RNs tried everything and changed out monitor, new FSE placed and initially worked properly, then reverted to maternal EKG again. IUPC placed prior to second FSE placed.) Accelerations: positive: Present, 15x15 Decelerations: positive: Variable, Intermittent (<50% x20 min) Strip Review: positive: Category I - Vaginal Exam Dilation (in cm): 4 Effacement (%): 50 Station: -3 - Labor Progress Note Labor Progress Note/Additional Text: Due to patient trauma from past, asked Khushbu Cavazos CNM to examine patient and AROM and place FSE. Patient agreed to all of above. Khushbu Cavazos CNM exam was 3/50%/-3 with head well applied and not ballotable. AROM with clear fluid performed. FSE placed. A few minutes after FSE placed two variables occurred. Next, monitor converted to heart rate to maternal EKG on monitor. Cords were exchanged. 3 RN's attempted to figure it out without success. Maternal pulse ox placed. monitor machine switched out. IUPC placed, new FSE placed. It worked for a short period of time, then converted it to maternal heart rate. External monitor placed back on maternal abdomen to monitor . During this time, Pitocin was paused because we could not monitor heart rate adequately. Pitocin re-started at 8miu/min. Contractions are every 2 minutes. monitor has remained category I with moderate variability. After all the examination, several contractions, CX is 4/50%/-3. Patient is having a significant amount of pain and decided she wanted an epidural.
[2021-01-23] MEDS ORDERED: ROPIVACAINE 0.2% 200 MG/100 ML BAG EP ONE (19:55)
[2021-01-23] MEDS ORDERED: fentaNYL 100 MCG/2 ML VIAL ONE (19:55)
[2021-01-23] MEDS ORDERED: BUPIVACAINE 0.25% PF 10 ML VIAL ONE (19:55)
[2021-01-23] MEDS ORDERED: ePHEDrine 50 MG/ML VIAL IVP PRN (20:32)
[2021-01-23] MEDS ORDERED: diphenhydrAMINE INJ 50 MG/ML VIAL IVP PRN (20:32)
[2021-01-23] MEDS ORDERED: NALOXONE 0.4 MG/ML VIAL IVP PRN (20:32)
[2021-01-23] MEDS ORDERED: ONDANSETRON 4 MG/2 ML VIAL IVP PRN (20:32)
[2021-01-23] MEDS ORDERED: ROPIVACAINE 0.2% 200 MG/100 ML BAG EP PRN (20:32)
[2021-01-23] MEDS ORDERED: METOCLOPRAMIDE 10 MG/2 ML VIAL IVP PRN (20:32)
[2021-01-23] MEDS ORDERED: NALBUPHINE 10 MG/ML AMP IVP PRN (20:32)
--- NOTE | 2021-01-23 20:32 | ANESTHESIA ---
Pre-Anesthesia VS, & Labs - Diagnosis active labor - Procedure labor epidural Vital Signs: Temp Pulse Resp BP Pulse Ox 36.7 C 78 18 138/79 H 99 01/23/21 12:30 01/23/21 12:30 01/23/21 12:30 01/23/21 12:30 01/23/21 12:30 Height: 5 ft 4 in Weight (kg): 124.284 kg Body Mass Index: 47.0 BMI Classification: Morbidly Obese - NPO >8 hours - Is Patient ?: Yes - Lab Results Current Lab Results: Laboratory Tests 01/22/21 10:00: Blood Type A POSITIVE, Antibody Screen NEGATIVE 01/22/21 10:00: WBC 9.9, RBC 3.96 L, Hgb 11.0 L, Hct 34.9 L, MCV 88.1, MCH 27.8, MCHC 31.5 L, RDW 14.2, Plt Count 196, MPV 11.2 H, Neut # (Auto) 6.7 H, Lymph # (Auto) 2.0, [place] # (Auto) 0.9, Eos # (Auto) 0.2, Baso # (Auto) 0.0, Absolute Nucleated RBC 0.00, Nucleated RBC % 0.0 Lab results reviewed: Yes Fish Bones: 01/22/21 10:00 Home Medications and Allergies Active Medications Acetaminophen (Acetaminophen 325 Mg Tablet) 650 mg PO Q6H PRN PRN Reason: Pain or Fever Carboprost Tromethamine (Carboprost Tromethamine 250 Mcg/Ml Amp) 250 mcg IM Q15M PRN PRN Reason: Step 4: Hemorrhage protocol Stop: 01/27/21 09:44 Fentanyl (Fentanyl 100 Mcg/2 Ml Vial) 50 mcg IVP Q1H PRN PRN Reason: PAIN Oxytocin/Sodium Chloride (Pitocin/Sodium Chloride) 500 mls @ 999 mls/hr IV PRN PRN; Protocol PRN Reason: POST- HEMORR PREVENTION Stop: 01/27/21 09:44 Tranexamic Acid (Tranexamic 1,000 Mg/100ml-Nacl) 1,000 mg in 100 mls @ 600 mls/hr IV .ONCE PRN PRN Reason: EBL >1200mL and within 3hr Stop: 01/27/21 09:44 Lactated Ringer's (Lr) 1,000 mls @ 100 mls/hr IV .Q10H [facility] Last Admin: 01/23/21 13:00 Dose: 100 mls/hr Documented by: Oxytocin/Sodium Chloride (Pitocin/Sodium Chloride) 500 mls @ 1 mls/hr IV TITR [facility]; Protocol Last Titration: 01/23/21 16:30 Dose: 6 milliunit/min, 6 mls/hr Documented by: Labetalol HCl (Labetalol 100 Mg Tablet) 100 mg PO BID [facility] Last Admin: 01/23/21 09:35 Dose: 100 mg Documented by: Lidocaine HCl (Lidocaine-Mpf 1% 30 Ml Vial) 30 ml ID .ONCE PRN PRN Reason: PERINEAL REPAIR Stop: 01/27/21 09:44 Methylergonovine Maleate (Methylergonovine 0.2 Mg/Ml Vial) 0.2 mg IM .ONCE PRN PRN Reason: Step 2: Hemorrhage protocol Stop: 01/27/21 09:44 Metoclopramide HCl (Metoclopramide 10 Mg/2 Ml Vial) 10 mg IVP Q6H PRN PRN Reason: Nausea / Vomiting Misoprostol (Misoprostol 200 Mcg Tablet) 800 mcg BC .ONCE PRN PRN Reason: Step 3: Hemorrhage protocol Stop: 01/27/21 09:44 Misoprostol (Misoprostol 100 Mcg Tablet) 50 mcg BC Q4H [facility] Last Admin: 01/23/21 06:02 Dose: 50 mcg Documented by: Ondansetron HCl (Ondansetron 4 Mg/2 Ml Vial) 4 mg IVP Q4HR PRN PRN Reason: Nausea / Vomiting Oxytocin (Oxytocin 10 Unit/Ml Vial) 10 unit IM .ONCE PRN PRN Reason: Step one: If no IV access Stop: 01/27/21 09:44 Sodium Chloride (Sodium Chloride Flush 0.9% 10 Ml Syringe) 10 ml IVP 0100,09 00,1700 [facility] Sodium Chloride (Sodium Chloride Flush 0.9% 10 Ml Syringe) 10 ml IVP PRN PRN PRN Reason: NEEDED PER PROVIDER ORDERS Last Admin: 01/22/21 19:38 Dose: 10 ml Documented by: Zolpidem Tartrate (Zolpidem 5 Mg Tablet) 5 mg PO QPM PRN PRN Reason: Insomnia Last Admin: 01/22/21 23:21 Dose: 5 mg Documented by: No115/Iron/Folic Acid [ 19 Chewable Tablet] 1 each PO DAILY 06/30/20 Aspirin [Aspirin EC] 81 mg PO DAILY 11/24/20 Labetalol [Trandate] 100 mg PO BID 11/24/20 Allergies/Adverse Reactions: Allergies Allergy/AdvReac Type Severity Reaction Status Date / Time latex Allergy Rash Verified 01/22/21 07:51 Anes History & Medical History - Anesthetic History Anesthesia Complications: reports: No previous complications Family history of Anesthesia Complications: Denies Family history of Malignant Hyperthermia: Denies - Medical History Cardiovascular: reports: Hypertension, Murmur Pulmonary: reports: None Gastrointestinal: reports: None Urinary: reports: None Smoking Status: Former smoker - Surgical History General: reports: Appendectomy - Obstetrical History : 1 Parity: 0 Events: reports: Gestational diabetes, Labor induction (Induction due to Chronic Hypertension and Gestational Diabetes Type A1), Other (Chronic Hypertension) Exam General: Alert, Oriented x3, Cooperative, No acute distress Dental: WNL Mouth Openin Fingerbreadth Neck Mobility: Normal Mallampati classification: III Respiratory: Lungs clear, Normal breath sounds, No respiratory distress, No accessory muscle use Cardiovascular: Regular rate, Normal S1, Normal S2, No murmurs Plan Anesthesia Type: Epidural Consent for Procedure(s) Verified and Reviewed: Yes Code Status: Attempt Resuscitation ASA classification: 3-Severe systemic disease Is this case an emergency?: No
[2021-01-24] MEDS ORDERED: ceFAZolin 2 GM in SODIUM CHLORIDE 0.9% 100ML 100 ML IV SCH (00:10)
[2021-01-24] MEDS ORDERED: ACETAMINOPHEN 500 MG TABLET PO PRN (04:58)
[2021-01-24] MEDS: ONDANSETRON 4 MG/2 ML VIAL IVP PRN ×2 (06:40→15:51)
[2021-01-24] MEDS: LABETALOL 100 MG TABLET PO SCH (09:04)
[2021-01-24] MEDS ORDERED: fentaNYL 100 MCG/2 ML VIAL ONE ×4 (09:10→17:10)
[2021-01-24] MEDS ORDERED: ROCURONIUM 50 MG/5 ML VIAL ONE (09:11)
[2021-01-24] MEDS ORDERED: SODIUM CHLORIDE 0.9% 10 ML VIAL IVP ONE ×2 (09:56→15:51)
[2021-01-24] MEDS ORDERED: LIDOCAINE-MPF 2% 5 ML VIAL ONE ×4 (09:56→17:34)
--- NOTE | 2021-01-24 10:07 | CONSULTATION NOTE ---
Consultation Report: Called for new pain with contractions. Sensory to L3. Epidural bolus, 100mcg Fentanyl, 10cc 1%Lidocaine. Epidural bag changed, dosing unchanged on pump. MD in to check pt after bolus, 6cm. Pain resolved
--- NOTE | 2021-01-24 10:26 | PROVIDER PROGRESS NOTE ---
Labor Progress Note - Uterine Monitoring Uterine Monitoring Mode: positive: IUPC Contraction Frequency (min/apart): 2-4 some coupling Contraction Intensity: positive: Moderate Uterine Resting Tone: positive: Soft - Monitoring Monitor Mode: positive: External ultrasound, Spiral electrode Heart Rate Baseline: 130 Heart Rate Variability: positive: Minimal (0-5 bpm) Accelerations: positive: Present, 15x15 Decelerations: positive: Variable - Vaginal Exam Dilation (in cm): 6 Effacement (%): 100 Station: -1 Cervical Position: Anterior - Labor Progress Note Labor Progress Note/Additional Text: Patient was having left sided back pain when I arrived in room. RN could not feel cervix on patient['s left side at 9:15 am exam. Anesthesia gave patient a bolus in epidural prior to my arrival in room. monitor strip was having moderate variability with accelerations until 9:30am, then, after bolus variability became minimal and 2-3 late in timing decelerations occurred. The external monitor was very difficult to keep on monitor and at times heart tones were off while we were examining patient. Decided to place a new scalp electrode and try a different monitor machine to see if we could obtain accurate monitoring of heart tones without having to hand hold it. New machine and cords worked with heart tones. Cervical exam at this time is 6cm, 100/-1 Discussed with patient that she has made progress, but will continue to monitor. Explained heart tones could be indication of needing a and if she fails to continue to make dilation and progress we will need to consider a . Patient expressed understanding. heart tones currently have minimal and some moderate variability. Patient received fentanyl. Will give fluid bolus. Continue to monitor. Currently Category II monitor strip.
[2021-01-24] MEDS ORDERED: LABETALOL 20 MG/4 ML SYRINGE IVP STA (11:33)
--- NOTE | 2021-01-24 11:47 | PROVIDER PROGRESS NOTE ---
Subjective - Prog Note Date Prog Note Date: 01/24/21 Prog Note Time: 11:45 Objective - Vital Signs/Intake & Output Vital Signs: Patient just had severely elevated blood pressure of 197/114. Temp is 37.2 monitor strip is currently Category I. Baseline 130 with moderate variability and accelrations are present. Decelerations are absent. IV Labetalol 20,g IVP ordered now/stat. PIH labs ordered stat. Continue careful monitoring. Intake & Output: Intake & Output 01/21/21 01/22/21 01/23/21 01/24/21 23:59 23:59 23:59 23:59 Intake Total 250 310.5 Output Total 1175 Balance 250 310.5 -1175 - Lab Results Fish Bones: 01/22/21 10:00 Assessment/Plan - Problem List (2) Gestational diabetes mellitus (GDM) in third trimester Qualifiers: Gestational diabetes mellitus control: diet-controlled Qualified Code(s): O24.410 - Gestational diabetes mellitus in , diet controlled
--- NOTE | 2021-01-24 12:11 | PROVIDER PROGRESS NOTE ---
Labor Progress Note - Uterine Monitoring Uterine Monitoring Mode: positive: IUPC Contraction Frequency (min/apart): Q2-3 Contraction Intensity: positive: Moderate Uterine Resting Tone: positive: Soft - Monitoring Monitor Mode: positive: Spiral electrode Heart Rate Baseline: 130 Heart Rate Variability: positive: Moderate (6-25 bmp) Accelerations: positive: Present, 15x15 Decelerations: positive: None Strip Review: positive: Category I - Vaginal Exam Dilation (in cm): 8 Effacement (%): 100 Station: 0 - Labor Progress Note Labor Progress Note/Additional Text: Patient was made comfortable by Anesthesia. Patient is trying to rest/relax. Lab was called to draw her PIH labs. 141/90 was blood pressure during exam. CX is 8/100/0 station with molding present. monitor is 130 with moderate variability and accelerations present. No decelerations. Currently, Category I. Scalp electrode. head has molding present. Appears to have adequate room for delivery. Discussed progress with patient and her elevated blood pressure and need to perform labs to assure she does not have superimposed pre-Eclampsia with her blood pressure. Expressed concern about her ability to push with elevated blood pressure. Discussed monitor strip is really good and progress is good. A-IUP 39 2/7 CHTN and GDM A1. Active labor. P- Increase Pitocin to 7miu/min. Continuous monitoring. PIH labs being drawn at this time.
[2021-01-24 12:24] LABS: BASOPHILS % (AUTO) 0.2 %; EOSINOPHILS % (AUTO) 0.1 %; HCT - HEMATOCRIT 37.2 % (37.0-47.0); HGB - HEMOGLOBIN 12.1 g/dL (12.0-16.0); LYMPHOCYTES # (AUTO) 1.2 10^3/uL (1.5-3.5); LYMPHOCYTES % (AUTO) 5.5 %; MEAN CORPUSCULAR HEMOGLOBIN 28.1 pg (27.0-31.0); MEAN CORPUSCULAR HGB CONC 32.5 g/dL (32.0-36.0); MEAN CORPUSCULAR VOLUME 86.3 fL (81.0-99.0); MEAN PLATELET VOLUME 10.7 fL (7.9-10.8); MONOCYTES # (AUTO) 1.5 10^3/uL (0.0-1.0); MONOCYTES % (AUTO) 6.7 %; NEUTROPHILS # (AUTO) 19.2 10^3/uL (1.5-6.6); NEUTROPHILS % (AUTO) 86.9 %; PLT - PLATELET COUNT 184 10^3/uL (130-450); RED BLOOD COUNT 4.31 10^6/uL (4.20-5.40); RED CELL DISTRIBUTION WIDTH 14.1 % (12.0-15.0); WHITE BLOOD COUNT 22.1 x10^3/uL (4.8-10.8)
[2021-01-24 12:27] LABS: SLIDE REVIEW? Indicated
[2021-01-24 12:35] LABS: ALBUMIN 2.6 g/dL (3.2-5.5); ALBUMIN/GLOBULIN RATIO 0.7 (1.0-2.2); BILIRUBIN,TOTAL 0.7 mg/dL (0.2-1.0); CALCIUM 8.6 mg/dL (8.5-10.3); CREATININE 0.8 mg/dL (0.4-1.0); POTASSIUM 3.9 mmol/L (3.5-5.0); TOTAL PROTEIN 6.5 g/dL (6.7-8.2)
[2021-01-24 12:49] LABS: PLATELET ESTIMATE, MANUAL NORMAL (130-450,000) (NORMAL); PLATELET MORPHOLOGY NORMAL APPEARANCE (NORMAL); RBC MORPHOLOGY (MULTIPLE) NORMAL APPEARANCE (NORMAL)
[2021-01-24 12:57] LABS: CREATININE,URINE 92.3 mg/dL
--- NOTE | 2021-01-24 14:03 | PROVIDER PROGRESS NOTE ---
Labor Progress Note - Uterine Monitoring Uterine Monitoring Mode: positive: IUPC Contraction Frequency (min/apart): 2-4, still has coupling Contraction Intensity: positive: Moderate Uterine Resting Tone: positive: Soft - Monitoring Monitor Mode: positive: Spiral electrode Heart Rate Baseline: 130 Heart Rate Variability: positive: Moderate (6-25 bmp) Decelerations: positive: Variable, Recurrent (>50% x20 min) Strip Review: positive: Category II - Vaginal Exam Dilation (in cm): 9 Effacement (%): 100 Station: 0 (Patient) - Labor Progress Note Labor Progress Note/Additional Text: Patient is comfortable with epidural. Patient is having variable decelerations with most contractions. CX is 9cm/100%/0 station. Head appears LOP to direct OP. Patient has peanut ball between legs. Discussed OP with patient. monitor strip is 130 with moderate and some minimal variability. Variable decelerations are present with at least 50%of contractions. Pitocin on 6,miu/min/ Category II. Plan to reassess in one hour.
[2021-01-24] MEDS ORDERED: ROPIVACAINE 0.5% PF 20 ML AMPULE ONE ×2 (15:06→17:13)
--- NOTE | 2021-01-24 15:36 | PROVIDER PROGRESS NOTE ---
Labor Progress Note - Uterine Monitoring Uterine Monitoring Mode: positive: IUPC Contraction Frequency (min/apart): 2-4 with coupling Contraction Intensity: positive: Moderate Uterine Resting Tone: positive: Soft - Monitoring Monitor Mode: positive: Spiral electrode Heart Rate Variability: positive: Moderate (6-25 bmp) Decelerations: positive: Variable, Intermittent (<50% x20 min) Strip Review: positive: Category II - Vaginal Exam Dilation (in cm): 9 Effacement (%): 100% Station: 0 - Labor Progress Note Labor Progress Note/Additional Text: S- Patient was having a lot of pain. Waited for Pedro with Anesthesia to get patient comfortable. Discussed lack of progress during the past 2-3 hours and that the head is not descending. O- VSS, Afebrile. CX: 9cm/100%/0 station. No change for over an hour. The head has not progressed in station in 3 hours. Monitor Strip: 130 with episodes of moderate and minimal variability. Having Recurrent Variable decelerations with contractions. Discussed with patient the lack of descent of head could be to Occiput Posterior presentation. Discussed Variable decelerations could be due to Nuchal cord or cord compression. Discussed risks, including blood loss, infection, damage to bladder and bowel with patient and Father of Baby Phillip. Discussed lack of progress indicates the infant may be too large to descend any further in the pelvis. Discussed patient will be given IV antibiotics. Patient given opportunity to discuss any questions or concerns. She asked if it would "hurt". We discussed that Epidural will be utilized for her anesthesia and she will feel motion but not pain. She will feel pressure and tugging and pulling, not pain. A- IUP 39 2/7 with CHTN and GDM, Failure to Progress, Suspected Occiput Posterior, Suspected Cephlopelvic Disproportion. P-Primary Low Transverse Section. Non-Urgent, Team being notified.
[2021-01-24] MEDS ORDERED: OXYTOCIN 10 UNIT/ML VIAL ONE (15:39)
[2021-01-24] MEDS ORDERED: ceFAZolin 1 GM VIAL ONE (15:40)
[2021-01-24] MEDS ORDERED: ACETAMINOPHEN 1,000 MG/100 ML 100 ML IV ONE (16:58)
[2021-01-24] MEDS: ACETAMINOPHEN 500 MG TABLET PO SCH (17:00)
[2021-01-24] MEDS ORDERED: KETOROLAC 30 MG/ML VIAL ONE (17:02)
[2021-01-24] MEDS: KETOROLAC 30 MG/ML VIAL IVP SCH ×3 (17:35→23:37)
[2021-01-24] MEDS ORDERED: LACTATED RINGERS 1,000 ML IV ONE (17:48)
[2021-01-24] MEDS ORDERED: OXYTOCIN/SODIUM CHLORIDE 500 ML IV PRN (17:51)
[2021-01-24] MEDS ORDERED: SODIUM CHLORIDE FLUSH 0.9% 10 ML SYRINGE IVP PRN (17:51)
[2021-01-24] MEDS ORDERED: ONDANSETRON ODT 4 MG TABLET TL PRN (17:51)
[2021-01-24] MEDS ORDERED: SIMETHICONE CHEW 80 MG TABLET PO PRN (17:51)
[2021-01-24] MEDS ORDERED: ePHEDrine 50 MG/ML VIAL IVP PRN (17:53)
[2021-01-24] MEDS ORDERED: NALOXONE 0.4 MG/ML VIAL IVP PRN (17:53)
[2021-01-24] MEDS ORDERED: ATROPINE ABBOJECT 1 MG/10 ML SYRINGE IVP PRN (17:53)
[2021-01-24] MEDS ORDERED: ONDANSETRON 4 MG/2 ML VIAL IVP PRN (17:53)
[2021-01-24] MEDS ORDERED: MORPHINE 2 MG/ML CARPUJECT IVP PRN (17:53)
[2021-01-24] MEDS ORDERED: METOCLOPRAMIDE 10 MG/2 ML VIAL IVP PRN (17:53)
[2021-01-24] MEDS ORDERED: HYDROmorphone 0.5 MG/0.5 ML SYRINGE IVP PRN (17:53)
--- NOTE | 2021-01-24 17:55 | ANESTHESIA POST OP EVALUATION ---
Anesthesia Post Eval - Post Anesthesia Eval Vitals: Last Vital Signs Temp 38.1 C H 01/24/21 17:48 Pulse 110 H 01/24/21 17:48 Resp 16 01/24/21 17:48 BP 138/92 H 01/24/21 17:48 Pulse Ox 98 01/24/21 17:48 CV Function Including HR & BP: Stable Pain Control: Satisfactory Nausea & Vomiting: Negative Mental Status: Baseline Respiratory Status: Airway Patent Hydration Status: Satisfactory Anesthesia Complications: None
[2021-01-24] MEDS ORDERED: LACTATED RINGERS 1,000 ML IV SCH ×2 (18:00)
--- NOTE | 2021-01-24 18:03 | DELIVERY NOTE ---
Delivery Note - Labor Labor: positive: Induced by ARM, Induced by oxytocin, Other (Cervical Ripening with Cytotec.) - Infant Delivery Method Infant Delivery Method: positive: Primary - Cervical Ripening Method Cervical Ripening Method: positive: Balloon device, Misoprostil - Presentation Presentation: positive: Vertex, LOP - left occiput posterior - Nuchal Cord Nuchal Cord: positive: None (Occult cord visualized on top of infan't chest and protruding through uterine incision.) - Anesthetic Anesthetic Type: - Amniotic Fluid Description Amniotic Fluid Description: positive: Clear - Episiotomy Type Episiotomy Type: positive: None - Delivery Outcome Delivery Outcome: positive: Livebirth - : positive: Placed in direct skin contact with mother [place] sex: positive: Female - Cord Cord: positive: 3 vessels - Placenta Placenta: positive: Intact, Manual removal - Estimated Blood Loss Estimated Blood Loss (in cc): 700 - Post Delivery Events Post Delivery Events: positive: No post delivery events - Delivery Comments (Free Text/Narrative) Delivery Comments (Free Text/Narrative): Surgeon: Chante Rubi DO Isheri Splicing Machine Operator Automatic: Khushbu Cavazos CNM Anethesia: Epidural by Pedro Pre-op DX: IUP 39 2/7 with CHTN and GDM, Failure to Progress, Suspected Occiput Posterior. Post-OP DX: Persistent Occiput posterior and Occult Cord. Findings: Living female with Apgars of 8/9. Normal Uterus, Normal tubes and ovaries bilaterally. EBL is 700cc IV fluids: 1600cc Patient started induction/cervical ripening on morning 01/22 due to IUP 39 0/7 with CHTN and GDM A1. Cytotec for 4 doses was utilized. Next a power balloon was placed on 01/23/21 in morning. Patient had AROM and FSE and IUPC placed at 1800 on 01/23 and was 3cm. Patient was started on Pitocin augmentation of labor. Patient had 12 hours of Pitocin and then had a 4 hour Pitocin brake. Patient had epidural placed on evening of 01/23/21. Patient progressed slowly to 5cm and then to 8cm. Station of head did not descend past 0 station. There was no signficant change in station of head for 3 hours. Cervix changed from 8 to 9cm, but head would not descend. It was decided that was most likely OP and Variable decelerations were present. Patient consented to Primary Low Transverse Section. Risks, Benefits, alternatives were discussed. Discussed likelihood that was OP and that the decelerations were not going to make pushing possible. Patient was taken to OR and placed on table in supine position. FSE was removed. Anesthesia had started surgery level of dosing prior to leaving labor and delivery. Left tilt was placed under the right hip. Patient was prepped and draped in the sterile fashion. Time out was performed. Ancef 2 grams was given pre-operatively. Prior to making incision, left tilt was removed. Allis was utilized to test patient's level of anesthesia. It was negative times 5. Incision was made in the [place] fashion. Skin incision was carried down to the fascia with the knife. Bleeders were cauterized with the bovie. The fascia was incised in the midline with the scalpel. The fascial incision was extended with pick ups with teeth and meng scissors. Two Kochers were placed on the superior edge of the fascia and the fascia was bluntly and sharply dissected from the muscle belly wall with meng scissors and blunt dissection. The same was carried out on the inferior edge of the fascia. The muscle bellies were in the midline and the peritoneum was found. A hemostat was utilized to grasp the peritoneum and it was bluntly entered. The Peritoneum was extended with blunt dissection. The uterus was checked for proper rotation which was pr esent. The lower uterine segment was identified and the bladder flap was made with Burmese pick ups and metzenbaum scissors. Blunt dissection created bladder flap. Bladder blade was placed. Uterine incision was made in Low transverse fashion. Hemostat was utilized to elevate the edge and uterine incision was entered bluntly. Finger fracture technique was utilized to extend the uterine incision. Occut cord was present upon extending the uterine incision. was in direct OP position. Surgeon's hand was placed under infant's head and elevated. Fundal pressure delivered the head, then the anterior shoulder through the incision. The remainder of the infant delivered spontaneously onto the abdomen. Living female. Cord clamped times two and cut. Dr. Reich was present to receive the . Infant had Apgars of 8/9. Cord segment for gases was collected, but was not needed. Cord blood collected and sent to lab. Placenta was removed manually. Placenta was intact. Uterus was externalized from abdominal cavity. It was wrapped in a warm moist lap. Warm, moist lap was utilized to clan the inside of the uterus. Membranes were seen and removed with rings forceps. The edges of uterus were identified and rings forceps placed. )-Vicryl in running, interlocking suture was utilized to close the uterus. 0-Vicryl in imbricating fashion was utilized to imbricate the uterine incision. Bovie was utlized to cauterize small bleeders. The cul de sac was irrigated with copious fluids. Normal tubes and ovaries, bilaterally were visualized. The uterus was returned to the abdominal cavity. The uterine incision was inspected and small bleeders were cauterized with the bovie. THere was bleeding on the uderside of the bladder flap. Light touch with bovie obtained hemostasis. More irrigation was utilized and and hemostasis was present. The peritoneum was closed with 2-0 Vicryl in a running fashion. The lower end of rectus muscle was approximated with one figure of 8 of 2-0 Vicryl. The muscle bellies were irrigated and hemostasis was present. #1 Vicryl in running fashion was utilized to close the fascia. Irrigation of subcutaneous layer was performed. BOvie was utilized to cauterize small bleeders. 2-0 Vicryl in running fashion was utilzied to close subcutaneous layer. 3-0 Monocryl in a subcuticular fashion was utilized to close the skin. A few steri-strips were placed. A Perveena dressing/ wound vac dressing was applied. Lap, needle and instrument counts were correct times three. EBL is 700cc. Patient was transferred back to in stable condition.
[2021-01-24] MEDS ORDERED: ceFAZolin 2 GM in SODIUM CHLORIDE 0.9% 100ML 100 ML IV ONE (18:44)
[2021-01-24] MEDS: LACTATED RINGERS 1,000 ML IV SCH ×2 (19:31→23:37)
[2021-01-25] MEDS ORDERED: SODIUM CHLORIDE FLUSH 0.9% 10 ML SYRINGE IVP SCH (01:00)
[2021-01-25] MEDS: ACETAMINOPHEN 500 MG TABLET PO SCH ×3 (02:13→21:04)
[2021-01-25] MEDS: oxyCODONE 5 MG TABLET PO PRN ×2 (03:54→21:04)
[2021-01-25 06:54] LABS: BASOPHILS # (AUTO) 0.1 10^3/uL (0.0-0.1); BASOPHILS % (AUTO) 0.4 %; EOSINOPHILS # (AUTO) 0.2 10^3/uL (0.0-0.7); EOSINOPHILS % (AUTO) 1.4 %; HCT - HEMATOCRIT 28.4 % (37.0-47.0); LYMPHOCYTES # (AUTO) 2.3 10^3/uL (1.5-3.5); LYMPHOCYTES % (AUTO) 13.8 %; MEAN CORPUSCULAR HGB CONC 31.7 g/dL (32.0-36.0); MEAN CORPUSCULAR VOLUME 88.2 fL (81.0-99.0); MEAN PLATELET VOLUME 10.5 fL (7.9-10.8); MONOCYTES # (AUTO) 1.5 10^3/uL (0.0-1.0); MONOCYTES % (AUTO) 8.9 %; NEUTROPHILS # (AUTO) 12.5 10^3/uL (1.5-6.6); NEUTROPHILS % (AUTO) 74.7 %; PLT - PLATELET COUNT 154 10^3/uL (130-450); RED BLOOD COUNT 3.22 10^6/uL (4.20-5.40); RED CELL DISTRIBUTION WIDTH 14.6 % (12.0-15.0); WHITE BLOOD COUNT 16.7 x10^3/uL (4.8-10.8)
[2021-01-25] MEDS ORDERED: SODIUM CHLORIDE 0.9% 100ML 100 ML IV ONE (08:39)
[2021-01-25] MEDS: LABETALOL 100 MG TABLET PO SCH ×2 (10:15→21:04)
[2021-01-25] MEDS: DOCUSATE SODIUM 100 MG CAPSULE PO SCH ×2 (10:15→21:03)
--- NOTE | 2021-01-25 10:40 | PROVIDER PROGRESS NOTE ---
Subjective - General Admit Date: 01/22/21 Procedure Date: 01/24/21 Post Op Days: 1 - Review of Systems General: positive: Fatigue HEENT: positive: No symptoms Pulmonary: positive: No symptoms Cardiovascular: positive: No symptoms Gastrointestinal: positive: No symptoms Genitourinary: positive: No symptoms Skin: positive: No symptoms All Other Systems: positive: Reviewed and negative (Patient is doing well and is sitting up, breast feeding . Patient states she was able to sleep this morning, so is feeling less tired. Patient reports flatus. Patient still has power and has not ambulated to bathroom yet.) Objective - Patient Data Reviewed Vital Signs: Yes Vital Signs: Vital Signs x48h Temp Pulse Resp BP Pulse Ox 01/25/21 08:00 98.1 F 90 20 109/61 97 01/25/21 06:14 103/56 L 01/25/21 06:08 97.5 F L 90 15 96/52 L 100 01/25/21 02:46 97.7 F 79 16 99/52 L 99 Weight: Weight 01/23/21 01/24/21 01/25/21 23:59 23:59 23:59 Weight (kg) 124.284 kg Intake & Output: Intake and Output Totals x24h 01/23/21 01/24/21 01/25/21 23:59 23:59 23:59 Intake Total 310.5 1733.5 100 Output Total 1500 465 Balance 310.5 233.5 -365 - Lab Results Lab Results: 01/25/21 06:49 01/24/21 12:16 Other Lab Results: Lab Results x24hrs 01/25/21 01/24/21 01/24/21 Range/Units 06:49 12:16 12:16 WBC 16.7 H 22.1 H (4.8-10.8) x10^3/uL RBC 3.22 L 4.31 (4.20-5.40) 10^6/uL Hgb 9.0 L 12.1 (12.0-16.0) g/dL Hct 28.4 L 37.2 (37.0-47.0) % MCV 88.2 86.3 (81.0-99.0) fL MCH 28.0 28.1 (27.0-31.0) pg MCHC 31.7 L 32.5 (32.0-36.0) g/dL RDW 14.6 14.1 (12.0-15.0) % Plt Count 154 184 (130-450) 10^3/uL MPV 10.5 10.7 (7.9-10.8) fL Neut # (Auto) 12.5 H 19.2 H (1.5-6.6) 10^3/uL Lymph # (Auto) 2.3 1.2 L (1.5-3.5) 10^3/uL Hamilton # (Auto) 1.5 H 1.5 H (0.0-1.0) 10^3/uL Eos # (Auto) 0.2 0.0 (0.0-0.7) 10^3/uL Baso # (Auto) 0.1 0.0 (0.0-0.1) 10^3/uL Absolute Nucleated RBC 0.00 0.00 x10^3/uL Nucleated RBC % 0.0 0.0 /100WBC Manual Slide Review Indicated WBC Morphology (NORMAL) Platelet Estimate NORMAL (130-450,000) (NORMAL) Platelet Morphology NORMAL APPEARANCE (NORMAL) RBC Morph Micro Appear NORMAL APPEARANCE (NORMAL) Sodium 136 (135-145) mmol/L Potassium 3.9 (3.5-5.0) mmol/L Chloride 106 (101-111) mmol/L Carbon Dioxide 18 L (21-32) mmol/L Anion Gap 12.0 (6-13) BUN 10 (6-20) mg/dL Creatinine 0.8 (0.4-1.0) mg/dL Estimated GFR (MDRD) 84 L (>89) Glucose 126 H (70-100) mg/dL Uric Acid 5.0 (2.6-7.2) mg/dL Calcium 8.6 (8.5-10.3) mg/dL Total Bilirubin 0.7 (0.2-1.0) mg/dL AST 17 (10-42) IU/L ALT 19 (10-60) IU/L Alkaline Phosphatase 137 H (42-121) IU/L Total Protein 6.5 L (6.7-8.2) g/dL Albumin 2.6 L (3.2-5.5) g/dL Globulin 3.9 (2.1-4.2) g/dL Albumin/Globulin Ratio 0.7 L (1.0-2.2) Urine Creatinine mg/dL Ur Total Protein Timed mg/dL Protein/Creatinin Ratio (<=0.2) 01/24/21 Range/Units 12:05 WBC (4.8-10.8) x10^3/uL RBC (4.20-5.40) 10^6/uL Hgb (12.0-16.0) g/dL Hct (37.0-47.0) % MCV (81.0-99.0) fL MCH (27.0-31.0) pg MCHC (32.0-36.0) g/dL RDW (12.0-15.0) % Plt Count (130-450) 10^3/uL MPV (7.9-10.8) fL Neut # (Auto) (1.5-6.6) 10^3/uL Lymph # (Auto) (1.5-3.5) 10^3/uL Hamilton # (Auto) (0.0-1.0) 10^3/uL Eos # (Auto) (0.0-0.7) 10^3/uL Baso # (Auto) (0.0-0.1) 10^3/uL Absolute Nucleated RBC x10^3/uL Nucleated RBC % /100WBC Manual Slide Review WBC Morphology (NORMAL) Platelet Estimate (NORMAL) Platelet Morphology (NORMAL) RBC Morph Micro Appear (NORMAL) Sodium (135-145) mmol/L Potassium (3.5-5.0) mmol/L Chloride (101-111) mmol/L Carbon Dioxide (21-32) mmol/L Anion Gap (6-13) BUN (6-20) mg/dL Creatinine (0.4-1.0) mg/dL Estimated GFR (MDRD) (>89) Glucose (70-100) mg/dL Uric Acid (2.6-7.2) mg/dL Calcium (8.5-10.3) mg/dL Total Bilirubin (0.2-1.0) mg/dL AST (10-42) IU/L ALT (10-60) IU/L Alkaline Phosphatase (42-121) IU/L Total Protein (6.7-8.2) g/dL Albumin (3.2-5.5) g/dL Globulin (2.1-4.2) g/dL Albumin/Globulin Ratio (1.0-2.2) Urine Creatinine 92.3 mg/dL Ur Total Protein Timed 922 mg/dL Protein/Creatinin Ratio 10.0 H (<=0.2) - Current Medications Current Medications: Current Medications Generic Name Dose Route Start Last Admin Trade Name Freq PRN Reason Stop Dose Admin Acetaminophen 1,000 mg 01/24/21 04:58 01/24/21 05:11 Acetaminophen 500 Mg Tablet PO 1,000 mg Q8HR PRN Administration Pain or Fever > 38C (100.4F) Acetaminophen 1,000 mg 01/24/21 18:00 01/25/21 02:13 Acetaminophen 500 Mg Tablet PO 1,000 mg Q8H MADIHA Administration Docusate Sodium 100 mg 01/24/21 21:00 01/25/21 10:15 Docusate Sodium 100 Mg Capsule PO 100 mg BID MADIHA Administration Lactated Ringer's 1,000 mls @ 100 mls/hr 01/22/21 10:00 01/24/21 23:37 Lr IV 150 mls/hr .Q10H MADIHA Administration Oxytocin/Sodium Chloride 500 mls @ 1 mls/hr 01/23/21 15:00 01/24/21 12:15 Pitocin/Sodium Chloride IV 7 milliunit/min TITR MADIHA 7 mls/hr Titration Protocol 1 MILLIUNIT/MIN Cefazolin Sodium 2 gm/ Sodium 100 mls @ 200 mls/hr 01/24/21 00:10 01/25/21 09:20 Chloride IV Infused Q8HR MADIHA Infusion Ketorolac Tromethamine 30 mg 01/24/21 18:00 01/24/21 23:37 Ketorolac 30 Mg/Ml Vial IVP 01/25/21 12:01 30 mg Q6H AMDIHA Administration Labetalol HCl 100 mg 01/22/21 21:00 01/25/21 10:15 Labetalol 100 Mg Tablet PO 100 mg BID MADIHA Administration Misoprostol 50 mcg 01/22/21 10:00 01/23/21 06:02 Misoprostol 100 Mcg Tablet BC 50 mcg Q4H MADIHA Administration Ondansetron HCl 4 mg 01/22/21 09:43 01/24/21 15:51 Ondansetron 4 Mg/2 Ml Vial IVP 4 mg Q4HR PRN Administration Nausea / Vomiting Oxycodone HCl 5 mg 01/24/21 17:51 01/25/21 03:54 Oxycodone 5 Mg Tablet PO 5 mg Q4HR PRN Administration PAIN Sodium Chloride 10 ml 01/22/21 09:43 01/22/21 19:38 Sodium Chloride Flush 0.9% 10 Ml Syringe IVP 10 ml PRN PRN Administration NEEDED PER PROVIDER ORDERS Zolpidem Tartrate 5 mg 01/22/21 21:13 01/22/21 23:21 Zolpidem 5 Mg Tablet PO 5 mg QPM PRN Administration Insomnia - Physical Exam Wound/Incisions: positive: Dressing dry and intact (No erythema or drainage.) General Appearance: positive: No acute distress Eyes Bilateral: positive: Normal inspection Respiratory: positive: No respiratory distress, Breath sounds nml. negative: Wheezes, Rales Cardiovascular: positive: Regular rate & rhythm. negative: No murmur, No gallop Abdomen: positive: Nml bowel sounds, No distention, Other (Fundus is firm and two fingers below the umbilicus. Some tenderness to top of fundus when palpated.) Rectal: positive: Non-tender Skin: positive: Color nml Extremities: positive: Non-tender, No pedal edema, Other (SCD's in place.). negative: Calf tenderness Neurologic/Psychiatric: positive: Oriented x3 Impression/Plan - Problem List Problem List: A- POD#1 Primary Low Transverse Section for failure to progress, Persistent OP and Occult cord. Chronic Hypertension and GDM A1 P- Continue routine post-op orders. Remove power, Up and ambulate in hallway. Repeast CBC and CMP in am.
[2021-01-25] MEDS: KETOROLAC 30 MG/ML VIAL IVP SCH (12:34)
[2021-01-25] MEDS: IBUPROFEN 600 MG TABLET PO SCH (18:30)
[2021-01-26] MEDS: IBUPROFEN 600 MG TABLET PO SCH ×3 (00:03→13:45)
[2021-01-26] MEDS: ACETAMINOPHEN 500 MG TABLET PO SCH ×2 (06:00→13:45)
[2021-01-26] MEDS: LABETALOL 100 MG TABLET PO SCH ×2 (07:43→09:16)
[2021-01-26] MEDS: DOCUSATE SODIUM 100 MG CAPSULE PO SCH (09:15)
--- NOTE | 2021-01-26 10:54 | PROVIDER PROGRESS NOTE ---
Subjective - General Admit Date: 01/22/21 Procedure Date: 01/24/21 Post Op Days: 2 Procedure Performed: Primary Low Transverse Section - Review of Systems Wound/Incisions: positive: Dressing dry and intact (No erythema or drainage.) General: positive: No symptoms (Patient is alert and sitting in chair holding her infant.), Fatigue HEENT: positive: No symptoms Pulmonary: positive: No symptoms Cardiovascular: positive: No symptoms Gastrointestinal: positive: No symptoms Genitourinary: positive: No symptoms Skin: positive: No symptoms Psychiatric: positive: No symptoms (Patient is without complaints. Patient is ambulating, urinating and tolerating a regular diet without difficulty. Patient states pain is well controlled. Patient is breast feeding.) All Other Systems: positive: Reviewed and negative (Patient is doing well and is sitting up, breast feeding infant. Patient states she was able to sleep this morning, so is feeling less tired. Patient reports flatus. Patient still has power and has not ambulated to bathroom yet.) Objective - Patient Data Reviewed Vital Signs: Yes Vital Signs: Vital Signs x48h Temp Pulse Resp BP Pulse Ox 01/26/21 08:25 98.2 F 86 18 111/63 96 01/26/21 05:50 97.9 F 85 16 114/64 98 Intake & Output: Intake and Output Totals x24h 01/24/21 01/25/21 01/26/21 23:59 23:59 23:59 Intake Total 1733.5 1100 Output Total 1500 1165 Balance 233.5 -65 - Lab Results Lab Results: 01/25/21 06:49 01/24/21 12:16 - Current Medications Current Medications: Current Medications Generic Name Dose Route Start Last Admin Trade Name Freq PRN Reason Stop Dose Admin Acetaminophen 1,000 mg 01/24/21 04:58 01/24/21 05:11 Acetaminophen 500 Mg Tablet PO 1,000 mg Q8HR PRN Administration Pain or Fever > 38C (100.4F) Acetaminophen 1,000 mg 01/24/21 18:00 01/26/21 06:00 Acetaminophen 500 Mg Tablet PO 1,000 mg Q8H MADIHA Administration Docusate Sodium 100 mg 01/24/21 21:00 01/26/21 09:15 Docusate Sodium 100 Mg Capsule PO 100 mg BID MADIHA Administration Lactated Ringer's 1,000 mls @ 100 mls/hr 01/22/21 10:00 01/25/21 11:00 Lr IV Infused .Q10H MADIHA Infusion Oxytocin/Sodium Chloride 500 mls @ 1 mls/hr 01/23/21 15:00 01/24/21 12:15 Pitocin/Sodium Chloride IV 7 milliunit/min TITR MADIHA 7 mls/hr Titration Protocol 1 MILLIUNIT/MIN Ibuprofen 600 mg 01/24/21 18:00 01/26/21 06:14 Ibuprofen 600 Mg Tablet PO 600 mg Q6H MADIHA Administration Labetalol HCl 100 mg 01/22/21 21:00 01/26/21 09:16 Labetalol 100 Mg Tablet PO 100 mg BID MADIHA Administration Misoprostol 50 mcg 01/22/21 10:00 01/23/21 06:02 Misoprostol 100 Mcg Tablet BC 50 mcg Q4H MADIHA Administration Ondansetron HCl 4 mg 01/22/21 09:43 01/24/21 15:51 Ondansetron 4 Mg/2 Ml Vial IVP 4 mg Q4HR PRN Administration Nausea / Vomiting Oxycodone HCl 5 mg 01/24/21 17:51 01/25/21 21:04 Oxycodone 5 Mg Tablet PO 5 mg Q4HR PRN Administration PAIN Sodium Chloride 10 ml 01/22/21 09:43 01/22/21 19:38 Sodium Chloride Flush 0.9% 10 Ml Syringe IVP 10 ml PRN PRN Administration NEEDED PER PROVIDER ORDERS Zolpidem Tartrate 5 mg 01/22/21 21:13 01/22/21 23:21 Zolpidem 5 Mg Tablet PO 5 mg QPM PRN Administration Insomnia - Physical Exam Wound/Incisions: positive: Dressing dry and intact General Appearance: positive: No acute distress Eyes Bilateral: positive: Normal inspection Respiratory: positive: Breath sounds nml. negative: Wheezes, Rales Cardiovascular: positive: Regular rate & rhythm Abdomen: positive: Nml bowel sounds, Other (Fundus is firm and below the umbilicus. Non-tender to palpation.). negative: Guarding Skin: positive: Color nml, Warm, Dry Extremities: positive: No pedal edema. negative: Calf tenderness Neurologic/Psychiatric: positive: Oriented x3, Mood/affect nml Comments/Other: Discussed that we need to repeat her Urine Protein/Creatinine ratio because it was very elevated on Tuesday. Discussed that she is at increased risk for Type II Diabetes later in life due to developing GDM. Impression/Plan - Problem List Problem List: POD#2 Primary Low Transverse Section. Doing well. Patient desires to go home. History of CHTN and GDM A1. Failure to Progress after cervical ripening and induction. P- Discharge to home this afternoon. Regular diet. Pelvic rest. Labetalol 1 00mg BID for CHTN, Oxycodone 5 mg for severe pain. Motrin 600mg for moderate pain. No driving for two weeks or until she can slam on her brakes. No heavy lifting, not more than 10 #'s. Follow-up in clinic this Tuesday for dressing removal and visit. Second follow-up in 4-6 weeks. Call for fever, chills, nausea or vomiting or any problems.
[2021-01-26 11:06] LABS: BASOPHILS % (AUTO) 0.3 %; EOSINOPHILS # (AUTO) 0.2 10^3/uL (0.0-0.7); HCT - HEMATOCRIT 26.4 % (37.0-47.0); HGB - HEMOGLOBIN 8.3 g/dL (12.0-16.0); LYMPHOCYTES # (AUTO) 1.7 10^3/uL (1.5-3.5); LYMPHOCYTES % (AUTO) 14.5 %; MEAN CORPUSCULAR HEMOGLOBIN 28.2 pg (27.0-31.0); MEAN CORPUSCULAR HGB CONC 31.4 g/dL (32.0-36.0); MEAN CORPUSCULAR VOLUME 89.8 fL (81.0-99.0); MEAN PLATELET VOLUME 10.2 fL (7.9-10.8); MONOCYTES # (AUTO) 0.8 10^3/uL (0.0-1.0); MONOCYTES % (AUTO) 6.2 %; NEUTROPHILS # (AUTO) 9.2 10^3/uL (1.5-6.6); NEUTROPHILS % (AUTO) 76.3 %; PLT - PLATELET COUNT 167 10^3/uL (130-450); RED BLOOD COUNT 2.94 10^6/uL (4.20-5.40); RED CELL DISTRIBUTION WIDTH 14.6 % (12.0-15.0)
--- NOTE | 2021-01-26 11:06 | DISCHARGE SUMMARY ---
"Discharge Summary Admit Date: 01/22/21 Discharge Date: 01/26/21 Discharging Provider: Chante Rubi DO Code Status: Attempt Resuscitation Condition at Discharge: Good Discharge Disposition: 01 Home, Self Care - DIAGNOSES Admission Diagnoses: IUP 39 0/7, Chronic Hypertension, Gestational Diabetes A1 Discharge Diagnoses with Status of Each Condition: S/P Primary Low Transverse Section. Chronic Hypertension Gestational Diabetes Resolved. - HPI History of Present Illness: 30yo patient of [facility] presented for Induction of labor at 39 0/7 due to CHTN and GDMA1. Patient had Hypertension prior to becoming . Patient had diet controlled Gestational Diabetes. - CONSULTS | PROCEDURES Procedures: Cytotec cervical Ripening, Power balloon placement for cervical ripening. Epidural Anesthesia, Artificial Rupture of membranes. Pitocin induction of labo r. Primary Low Transverse Section of 01/24/2021. - HOSPITAL COURSE Hospital Course: 30yo was admitted on 01/22/21 for Induction of labor at 39 0/7 due to Chronic Hypertension and GDM-A1. Patient had been consented on 01/21/[address] Mccarthy in the office. Patient had Cytotec on and Tuesday morning. Patient had power balloon placed on Tuesday. Tuesday evening patient had Artificial Rupture of Membranes and internal monitors placed. Patient had epidural anesthesia placed on Tuesday. Patient had several episodes of increased blood pressure on Tuesday morning. When patient was in pain, her blood pressure would get very elevated. Patient received IV Labetalol for this twice. Patient progressed to 9cm on Tuesday afternoon, but the head would not descend below 0 station. There were variable decelerations present intermittently throughout Tuesday. head was persistent OP and would not rotate and not descend, so it was decided to perform a Primary Low Transverse Section on Tuesday. Patient tolerated the procedure well. Infant was a living female with 8/9 Apgars and weight of 6 pounds, 8 ounces. Estimated blood loss for surgery was 700cc. POD #1 Patient was doing well. Patient started ambulating, urinating and tolerating a regular diet. She was Breast feeding. POD #2 Patient is doing well and would like to go home today. Patient is ambulating, urinating and tolerating a regular diet. Patient is breast feeding. - ALLERGIES Allergies/Adverse Reactions: Allergies Allergy/AdvReac Type Severity Reaction Status Date / Time latex Allergy Rash Verified 01/22/21 07:51 - MEDICATIONS Home Medications: Ambulatory Orders Medication Instructions Recorded Confirmed No115/Iron/Folic Acid 1 each PO DAILY 06/30/20 11/24/20 [ 19 Chewable Tablet] Labetalol [Trandate] 100 mg PO BID 11/24/20 11/24/20 - PHYSICAL EXAM AT DISCHARGE General Appearance: positive: No acute distress Eyes Bilateral: positive: Normal inspection Respiratory: positive: Breath sounds nml. negative: Wheezes, Rales Cardiovascular: positive: Regular rate & rhythm, No murmur, No gallop Abdomen: positive: Nml bowel sounds, Other (Fundus is firm and below the umbilicus, non-tender to palpation.). negative: Guarding, Rebound Skin: positive: Color nml Extremities: positive: No pedal edema. negative: Calf tenderness Neurologic/Psychiatric: positive: Oriented x3, Mood/affect nml - LABS Result Diagrams: 01/25/21 06:49 01/24/21 12:16 - FOLLOW UP Follow Up: In clinic Tuesday01/30/21 for dressing removal. In clinic in 4-6 weeks for Post-op/ visit. - TIME SPENT Time Spent in Discharge (Minutes): 45"
[2021-01-26 11:19] LABS: ALBUMIN 2.2 g/dL (3.2-5.5); ALBUMIN/GLOBULIN RATIO 0.6 (1.0-2.2); BILIRUBIN,TOTAL 0.3 mg/dL (0.2-1.0); CALCIUM 8.7 mg/dL (8.5-10.3); CREATININE 0.7 mg/dL (0.4-1.0); POTASSIUM 4.1 mmol/L (3.5-5.0); TOTAL PROTEIN 5.8 g/dL (6.7-8.2)
--- NOTE | 2021-01-26 11:28 | Discharge Plan ---
Discharge Plan Problem Reviewed?: Yes Disposition: 01 Home, Self Care Condition: Good Diet: Regular Activity Restrictions: Additional Comments (No heavy lifting not more than 10 pounds. No driving until she can slam on brakes and it not on Narcotic pain medication for prior 24 hours.) Shower Restrictions: Yes (Keep back to shower. Do not take tub bath until dressing is removed in off) No Smoking: If you smoke, Please STOP! Call for help.
[2021-01-26] MEDS: oxyCODONE 5 MG TABLET PO PRN (13:45)
[2021-01-26 13:46] LABS: PROTEIN/CREATININE RATIO,URINE 0.2 (<=0.2)
[2021-01-26 18:16] VITALS: BP 135/82
== END 2021-01-26 16:50 | disposition home or self-care (01) | DRG 788 ==
LOC: WFO 07:34 → FBP 07:36 → WFO 09:42 → FBP 09:43
PROVIDERS: ADMIT Obstetrics & Gynecology; ATTEND Obstetrics & Gynecology
PROC: 3E033VJ Introduction of Other Hormone into Peripheral Vein, Percutaneous Approach (ICD-10-PCS; 2021-01-23)
PROC: 10H07YZ Insertion of Other Device into Products of Conception, Via Natural or Artificial Opening (ICD-10-PCS; 2021-01-23)
PROC: 10907ZC Drainage of Amniotic Fluid, Therapeutic from Products of Conception, Via Natural or Artificial Opening (ICD-10-PCS; 2021-01-24)
PROC: 10D00Z1 Extraction of Products of Conception, Low, Open Approach (ICD-10-PCS; principal; 2021-01-24 16:00)
DX: O10.92 Unspecified pre-existing hypertension complicating childbirth (principal); O24.420 Gestational diabetes mellitus in childbirth, diet controlled; O64.0XX0 Obstructed labor due to incomplete rotation of fetal head, not applicable or unspecified; O69.89X0 Labor and delivery complicated by other cord complications, not applicable or unspecified; O76 Abnormality in fetal heart rate and rhythm complicating labor and delivery; Z20.822 Contact with and (suspected) exposure to COVID-19; Z3A.39 39 weeks gestation of pregnancy; Z37.0 Single live birth; Z87.891 Personal history of nicotine dependence; Z79.82 Long term (current) use of aspirin; Z79.899 Other long term (current) drug therapy
CPT/HCPCS: 36415; 80053; 82570; 84156; 84550; 85025; 86850; 86900; 86901; 87635; A9270; J0131; J7120

== ENCOUNTER 2022-07-14 11:18 | Outpatient (CLI) | payer OTHER ==
--- NOTE | 2022-07-14 18:20 | XRAY Report ---
PROCEDURE: Knee 3 View RT INDICATIONS: PAIN IN RIGHT KNEE TECHNIQUE: 3 views of the right knee(s) were acquired. COMPARISON: None. FINDINGS: Bones: No fractures or dislocations. No suspicious bony lesions. Soft tissues: No joint effusion. No suspicious soft tissue calcifications. IMPRESSION: No evidence acute bony abnormality of the right knee. If clinical suspicion and/or symptoms persist, further assessment with repeat plain films or advanced imaging (e.g., CT, MRI, or bone scan) may be helpful for further assessment. Reviewed by: Silas Wood MD on 07/14/2022 6:19 PM PST Approved by: Silas Wood MD on 07/14/2022 6:19 PM PST Station ID: [id number]
== END 2022-07-14 11:19 | disposition home or self-care (01) ==
LOC: DI 11:18
PROVIDERS: ATTEND Physician Assistant
DX: M25.561 Pain in right knee (principal)

== ENCOUNTER 2022-07-28 16:30 | Outpatient (CLI) | payer OTHER ==
[2022-07-28 20:59] LABS: BASOPHILS # (AUTO) 0.1 10^3/uL (0.0-0.1); BASOPHILS % (AUTO) 0.7 %; EOSINOPHILS # (AUTO) 0.1 10^3/uL (0.0-0.7); EOSINOPHILS % (AUTO) 1.8 %; HCT - HEMATOCRIT 44.8 % (37.0-47.0); HGB - HEMOGLOBIN 14.5 g/dL (12.0-16.0); LYMPHOCYTES # (AUTO) 2.3 10^3/uL (1.5-3.5); LYMPHOCYTES % (AUTO) 34.9 %; MEAN CORPUSCULAR HEMOGLOBIN 28.4 pg (27.0-31.0); MEAN CORPUSCULAR HGB CONC 32.4 g/dL (32.0-36.0); MEAN CORPUSCULAR VOLUME 87.8 fL (81.0-99.0); MEAN PLATELET VOLUME 10.2 fL (7.9-10.8); MONOCYTES # (AUTO) 0.6 10^3/uL (0.0-1.0); MONOCYTES % (AUTO) 9.4 %; NEUTROPHILS # (AUTO) 3.5 10^3/uL (1.5-6.6); NEUTROPHILS % (AUTO) 52.9 %; PLT - PLATELET COUNT 235 10^3/uL (130-450); WHITE BLOOD COUNT 6.7 x10^3/uL (4.8-10.8)
[2022-07-28 21:05] LABS: CALCIUM 9.8 mg/dL (8.5-10.3); CREATININE 0.6 mg/dL (0.4-1.0); POTASSIUM 3.9 mmol/L (3.5-5.0)
[2022-07-28 21:21] LABS: PARTIAL THROMBOPLASTIN TIME 30.8 secs (24.9-33.3)
[2022-07-28 21:36] LABS: PT - PROTHROMBIN TIME 11.2 secs (9.9-12.6)
== END 2022-07-28 16:45 | disposition home or self-care (01) ==
LOC: LAB.N 16:30
PROVIDERS: ATTEND Nurse Practitioner
DX: R22.41 Localized swelling, mass and lump, right lower limb (principal)
CPT/HCPCS: 36415; 80048; 85025; 85379; 85610; 85730